=== PATIENT | male | born 1940 | race Caucasian/White ===

== ENCOUNTER 2024-01-27 17:55 | Inpatient (IN) | payer MEDICARE, OTHER ==
[~2024-01-27] VITALS: Ht 177.8 cm; Wt 68.0 kg
--- NOTE | 2024-01-27 18:05 | NUR ---
PT C/O OF MODERATE PAIN TO L LEG, HIP AND NECK X 2 DAYS AFTER FALL. PT TAKEN TO BED 1 AND PT CONNECTED TO MONITOR. PT WAITING FOR ER MD SWANSON.
--- NOTE | 2024-01-27 19:00 | NUR ---
ER AT BEDSIDE FOR EVAL
[2024-01-27 19:06] VITALS: O2SAT 100
[2024-01-27] MEDS ORDERED: MORPHINE SULFATE INJ 4 MG/ML DISP.SYRIN ONE (19:12)
[2024-01-27] MEDS: MORPHINE SULFATE INJ 2 MG/ML DISP.SYRIN IV ONE (19:26)
--- NOTE | 2024-01-27 21:21 | NUR ---
DR SARAI AUGUSTINE.
--- NOTE | 2024-01-27 22:09 | NUR ---
REPORT GIVEN TO RESIDENTIAL PROGRAM MANAGER GILL
[2024-01-27 22:27] VITALS: BP 123/62; TEMP 97.3; O2SAT 100
[2024-01-27] MEDS ORDERED: ONDANSETRON HCL/PF 4 MG/2 ML VIAL IVP PRN (22:30)
[2024-01-27] MEDS ORDERED: Z GUARD REMEDY 4 OZ OINT TP PRN (22:30)
--- NOTE | 2024-01-27 22:30 | NUR ---
MS TAXI DANCER NOTES RECEIVED PATIENT FROM ED VIA [facility]. REPORT GIVEN BY CHARGE NURSE FLAQUITO. PATIENT IS A&O X 2-3, CONFUSED AND FORGETFUL. ON ROOM AIR, TOLERATING WELL. BREATHING EVEN AND NON LABORED, NO SOB NOTED. ALL BELONGINGS ACCOUNTED FOR, AND BELONGING LIST PLACED IN THE CHART. IV ACCESS TO RIGHT WRIST #22G, PATENT INTACT AND FLUSHING WELL, WITH IV FLUID OF NS RUNNING AT 75 ML/HR, INFUSING WELL. SKIN ASSESSMENT DONE, HAS SCAB TO RIGHT BIG TOE, AND SCAB TO LEFT ANKLE, AND DISCOLORATIONS TO BLE. PICTURES TAKEN AND PLACED IN CHART. LUNGS CLEAR. BOWEL SOUNDS PRESENT. FALL AND SAFETY MEASURES ARE IN PLACE: BED ON LOW LOCKED POSITION, SIDE RAILS RAISED X2, ALARM ON AND CALL LIGHT WITHIN REACH AT ALL TIMES. PLAN OF CARE OF ONGOING.
--- NOTE | 2024-01-27 22:36 | NUR ---
PT TRANSPORTED TO [facility] [[email or web address]] VIA GURNEY WITH ACLS PROTOCOL
[2024-01-27] MEDS: IV NS 0.9% 1,000 ML IV PRN (23:39)
[2024-01-28] MEDS: MORPHINE SULFATE INJ 2 MG/ML DISP.SYRIN IV PRN (00:30)
--- NOTE | 2024-01-28 00:30 | NUR ---
RN NOTE PT REPORTS PAIN TO LEFT HIP. MORPHINE ADMINISTERED TO PT.
[2024-01-28 06:41] LABS: BASOPHILS # (AUTO) 0.1 K/uL (0.0-0.2); BASOPHILS % (AUTO) 0.6 % (0.0-2.0); EOSINOPHILS # (AUTO) 0.6 K/uL (0.0-0.7); HEMATOCRIT 27 % (39-51); HEMOGLOBIN 9.4 g/dL (13.5-17.5); LYMPHOCYTES # (AUTO) 1.6 K/uL (0.8-4.8); LYMPHOCYTES % (AUTO) 16.9 % (20.0-44.0); MEAN CORPUSCULAR HEMOGLOBIN 36 PG (26.0-33.0); MEAN CORPUSCULAR HGB CONC 35 g/dl (31.0-36.0); MEAN CORPUSCULAR VOLUME 102 fL (80-96); NEUTROPHILS # (AUTO) 6.4 K/uL (1.8-8.9); NEUTROPHILS % (AUTO) 66.5 % (43.0-81.0); PLATELET COUNT (AUTO) 123 K/uL (150-450); RED BLOOD CELL COUNT(AUTO) 2.63 MIL/uL (4.5-6.0); RED CELL DISTRIBUTION WIDTH 15.1 % (11.5-15.0); WHITE BLOOD COUNT (AUTO) 9.6 K/uL (4.3-11.0)
[2024-01-28 06:54] LABS: INR 1.24 (0.91-1.10)
--- NOTE | 2024-01-28 07:00 | NUR ---
RN NOTE RT IS CALLED TO DO STAT EKG. RT REPLIES THAT HE WILL COME SHORTLY. AWAITING FOR RT.
[2024-01-28] MEDS ORDERED: FENTANYL PF 100MCG/2ML AMPUL ONE (07:05)
--- NOTE | 2024-01-28 07:10 | NUR ---
RN NOTE RT WAS CALLED FOR EKG. WAITING FOR RT TO COME FOR EKG. INFORMED OR NURSE POLI THAT EKG IS NOT DONE YET. STRESS ENGINEERCELY ASHTON STATES THAT SHE CAN NOT WAIT FOR EKG TO BE DONE. SHE WILL TAKE THE PT TO OR, AND WILL ASK FOR EKG TO BE DONE IN OR.
--- NOTE | 2024-01-28 07:15 | NUR ---
RN CLOSING NOTE PT LEFT FOR SURGERY ACCOMPANIED BY 2 OR NURSE. PRE-OP CHECK LIST DONE. PT'S DTR JAVIER WAS CALLED FOR CONSENT, BUT NO ANSWER. MESSAGE LEFT FOR DTR TO CALL BACK. PT WAS EXPLAINED PROCEDURE AN CONSENTED FOR IM NAILING OF LEFT HIP. CONSENT SIGNED, AND PLACED IN CHART. PT LEFT IN STABLE CONDITION, VS WNL., WILL ENDORSE PT TO AM NURSE FOR FILI.
--- NOTE | 2024-01-28 07:30 | NUR ---
RN NOTE PATIENT CURRENTLY NOT IN HIS ROOM AT THIS TIME. PT AT OR/SURGERY ROOM.
[2024-01-28 07:35] LABS: CALCIUM, SERUM 8.6 mg/dL (8.5-10.1); CARBON DIOXIDE 24 mmol/L (21-32); CHLORIDE 110 mmol/L (98-107); GLUCOSE 103 mg/dL (74-106); MAGNESIUM 2.2 mg/dL (1.8-2.4); POTASSIUM 3.9 mmol/L (3.5-5.1); SODIUM SERUM 142 mmol/L (136-145); UREA NITROGEN, BLOOD 17 mg/dL (7-18)
[2024-01-28] MEDS ORDERED: TRANEXAMIC ACID 1,000 MG/10 ML VIAL ONE (07:47)
[2024-01-28] MEDS ORDERED: VANCOMYCIN 1 GM VIAL ONE (07:47)
[2024-01-28] MEDS ORDERED: BUPIVACAINE 0.5 % PF 150 MG/30 ML VIAL ONE (07:47)
[2024-01-28] MEDS ORDERED: SEVOFLURANE 250 ML BOTTLE IH ONE (08:30)
[2024-01-28] MEDS: PANTOPRAZOLE 40 MG VIAL IV SCH (08:58)
--- NOTE | 2024-01-28 10:30 | NUR ---
RN NOTE PATIENT CAME BACK FROM OR/SURGERY S/P LT HIP IM CHICHI, A/OX2-3 CHILEAN SPEAKING. PATIENT ON ROOM AIR TOLERATING AT 100%. VITALS TAKEN, WNL. BP IS 119/58 RR-15 WA-65. PATIENT DENIES ANY PAIN AT THIS TIME, APPEARS COMFORTABLE. ALL DUE MEDS GIVEN. PATIENT INCISION SITE AT LT HIP IS INTACT AND NO BLEEDING ON SITE. WILL CONTINUE TO MONITOR.
[2024-01-28] MEDS ORDERED: MORPHINE SULFATE INJ 4 MG/ML DISP.SYRIN IV PRN ×2 (11:30)
[2024-01-28] MEDS: Potassium Chloride 20 MEQ in IV D5/0.45 NACL 1,000 ML IV SCH (12:04)
[2024-01-28 12:07] LABS: IRON, SERUM 72 ug/dl (50-175); TOTAL IRON BINDING CAPACITY 199 ug/dl (250-450)
[2024-01-28 16:04] VITALS: BP 106/59; TEMP 97.5; O2SAT 100
[2024-01-28] MEDS: HYDROCODONE/APAP 5/325MG TABLET PO PRN (16:46)
--- NOTE | 2024-01-28 16:46 | NUR ---
RN NOTE PATIENT C/O LEFT HIP PAIN, P/S OF 8/10, VITALS WNL. BP-106/54 RR-16 HR-76 T-97.5 SPO2-100% ON ROOM AIR. WILL MONITOR FOR EFFECTIVENESS.
--- NOTE | 2024-01-28 19:22 | NUR ---
END OF SHIFT NOTE PATIENT AWAKE IN BED, A/OX2-3 GREEK SPEAKING. PATIENT ON ROOM AIR, NOT IN ANY FORM OF DISTRESS NOTED AT THIS TIME. PATIENT DENIES ANY PAIN AT THIS TIME, APPEARS COMFORTABLE. S/P LT HIP IM RODDING, NO BLEEDING NOTED AT THIS TIME. ALL DUE MEDS GIVEN. ALL NEEDS ATTENDED. FALL AND SAFETY MEASURES IN PLACE. BED ALARM ON. BED IN LOW AND LOCKED POSITION. CALL LIGHT AND TABLE WITHIN REACH. SIDE RAILS UP X3. WILL ENDORSE TO NOC NURSE.
--- NOTE | 2024-01-28 19:25 | NUR ---
MS RN OPENING NOTES RECEIVED PATIENT AWAKE ON BED. A/O X2-3 ALBANIAN SPEAKING. ON ROOM AIR TOLERATING WELL WITHOUT ANY RESPIRATORY DISTRESS NOTED. WITH IV ACCESS OF R WRIST G#22 WITH ONGOING IVF OF D5 1/2NS WITH 20 MEQS KCL AT 125CC/HR. PATENT AND INTACT. WITH SURGICAL DRESSING AT LEFT HIP C/D/I. ON PUREWICK WITH YELLOW URINE OUTPUT NOTED. SAFETY MEASURES IMPLEMENTED. BED LOCKED AND IN LOWEST POSITION. SIDE RAILS X2. CALL LIGHT WITHIN REACH. WILL CONTINUE PLAN OF CARE.
--- NOTE | 2024-01-28 19:35 | NUR ---
RN NOTES IVF D5 1/2 NS WITH 20 MEQS KCL NOT HOOKED BECAUSE THERE WAS STILL 250 CC LEFT.
[2024-01-28 20:27] VITALS: BP 134/68; TEMP 97.3; O2SAT 100
--- NOTE | 2024-01-29 06:48 | NUR ---
MS RN CLOSING NOTES PATIENT AWAKE ON BED. A/O X2-3 FRENCH SPEAKING. ON ROOM AIR TOLERATED WELL WITHOUT ANY RESPIRATORY DISTRESS NOTED THE WHOLE SHIFT. WITH IV ACCESS OF R WRIST G#22 WITH ONGOING IVF OF D5 1/2NS WITH 20 MEQS KCL AT 125CC/HR. PATENT AND INTACT. WITH SURGICAL DRESSING AT LEFT HIP. ON PUREWICK WITH DARK YELLOW URINE OUTPUT NOTED. CANISTER CHANGED. MORNING CARE RENDERED. SAFETY MEASURES MAINTAINED. NEEDS ATTENDED. ENDORSED TO MORNING SHIFT NURSE.
--- NOTE | 2024-01-29 07:10 | NUR ---
RN NOTE WAITING FOR RT TO COME FOR EKG. INFORMED OR NURSE POLI THAT EKG IS NOT DONE YET. ENTRY SPECIALIST POLI STATES THAT SHE CAN NOT WAIT FOR EKG TO BE DONE. SHE WILL TAKE THE PT TO OR, AND WILL ASK FOR EKG TO BE DONE IN OR. Addendum: 01/29/24 at 0739 by SUNDAY LOPEZ RN PLEASE DISREGARD NOTE.
[2024-01-29 07:30] VITALS: BP 130/61; TEMP 97.5; O2SAT 98
[2024-01-29 07:39] LABS: BASOPHILS % (AUTO) 0.3 % (0.0-2.0); EOSINOPHILS # (AUTO) 0.8 K/uL (0.0-0.7); EOSINOPHILS % (AUTO) 7.6 % (0.0-6.0); HEMATOCRIT 25 % (39-51); LYMPHOCYTES # (AUTO) 1.5 K/uL (0.8-4.8); LYMPHOCYTES % (AUTO) 14.1 % (20.0-44.0); MEAN CORPUSCULAR HEMOGLOBIN 37 PG (26.0-33.0); MEAN CORPUSCULAR HGB CONC 36 g/dl (31.0-36.0); MEAN CORPUSCULAR VOLUME 104 fL (80-96); MONOCYTES # (AUTO) 1.2 K/uL (0.1-1.30); MONOCYTES % (AUTO) 11.4 % (2.0-12.0); NEUTROPHILS # (AUTO) 7.3 K/uL (1.8-8.9); NEUTROPHILS % (AUTO) 66.6 % (43.0-81.0); PLATELET COUNT (AUTO) 131 K/uL (150-450); RED BLOOD CELL COUNT(AUTO) 2.46 MIL/uL (4.5-6.0); RED CELL DISTRIBUTION WIDTH 15.7 % (11.5-15.0); WHITE BLOOD COUNT (AUTO) 10.9 K/uL (4.3-11.0)
--- NOTE | 2024-01-29 07:43 | NUR ---
RN OPENING NOTE RECEIVED PATIENT SLEEPING IN BED. AWAKENS TO VERBAL STIMULI. A/O X2-3, ENGLISH SPEAKING. ON ROOM AIR, TOLERATING WELL WITHOUT ANY SOB. NO RESPIRATORY DISTRESS NOTED. PATIENT WITH IV ACCESS ON R WRIST #22G, WITH ONGOING IVF OF D5 1/2NS WITH 20 MEQS KCL AT 125CC/HR. WITH SURGICAL DRESSING AT LEFT HIP C/D/I. PATIENT ON PUREWICK CONNECTED TO WALL SUCTION. SAFETY MEASURES IN PLACE: BED LOCKED AND IN LOWEST POSITION. SIDE RAILS X2. CALL LIGHT WITHIN REACH. PLAN OF CARE ONGOING.
[2024-01-29 07:46] LABS: CALCIUM, SERUM 7.5 mg/dL (8.5-10.1); CARBON DIOXIDE 18 mmol/L (21-32); CHLORIDE 110 mmol/L (98-107); CREATININE 0.8 mg/dL (0.6-1.3); GLUCOSE 108 mg/dL (74-106); POTASSIUM 4.7 mmol/L (3.5-5.1); SODIUM SERUM 138 mmol/L (136-145); UREA NITROGEN, BLOOD 15 mg/dL (7-18)
[2024-01-29] MEDS: PANTOPRAZOLE 40 MG TABLET.DR PO SCH (09:00)
[2024-01-29 11:16] LABS: IRON, SERUM 73 ug/dl (50-175); TOTAL IRON BINDING CAPACITY 160 ug/dl (250-450)
[2024-01-29] MEDS: SOD FERRIC GLUC 125 MG in IV NS 0.9% 100 ML IV SCH (13:44)
[2024-01-29 16:00] VITALS: BP 107/71; TEMP 97.3; O2SAT 100
--- NOTE | 2024-01-29 19:18 | NUR ---
RN CLOSING NOTE PATIENT IS AWAKE IN BED, WITH FAMILY AT BEDSIDE, A/O X2-3, NORWEGIAN SPEAKING. ON ROOM AIR, TOLERATING WELL WITHOUT ANY SOB. NO RESPIRATORY DISTRESS NOTED. PATIENT WITH IV ACCESS ON R WRIST #22G, INTACT, PATENT, SALINE LOCKED. WITH SURGICAL DRESSING AT LEFT HIP C/D/I. PATIENT ON PUREWICK CONNECTED TO WALL SUCTION. DUE MEDS GIVEN. CARE RENDERED. NEEDS ATTENDED. SAFETY MEASURES MAINTAINED: BED LOCKED AND IN LOWEST POSITION. SIDE RAILS X2. CALL LIGHT WITHIN REACH. ENDORSED TO NEON SIGN MECHANIC NURSE FOR CONTINUITY OF CARE.
--- NOTE | 2024-01-29 19:20 | NUR ---
MS SUZY INITIAL NOTES Received report from am nurse Sebas and checked the patient in his room and saw him awake and alert Malay man no signs of any acute distress noted. Appears comfortable and denies any pain or any discomfort. Family at the bedside helping to translate what I'm asking to the patient . Patient has an IV access on his right wrist gauge 22 patent ,intact and flushes well. Re-oriented patient where he at and how to use the call light system and patient understood well but per family sometimes patient having forgetful . Kept him warm and comfortable at all times. Bed in low and lock in position with side rails x2 up and bed alarm set for safety. will continue monitoring.
[2024-01-29 20:27] VITALS: BP 112/56; TEMP 97.9; O2SAT 100
--- NOTE | 2024-01-30 00:48 | NUR ---
MS TECHNICAL SERVICES LIBRARIAN NOTES Checked patient and saw him awake and alert, facial grimace noted and complaining of pain 12/10 , [place] tablet 5/325 x2 doses given as ordered with apple sauce and water , patient tolerated well , No signs of aspiration or N/V noted, Kept him warm and comfortable at all times. will continue monitoring.
--- NOTE | 2024-01-30 03:49 | NUR ---
MS SUZY NOTES Checked patient in his room saw him remain sleeping comfortably after pain medication given. Respiration even and non-labored, not in any acute distress noted. Kept him warm and comfortable at all times. call light at reach.
--- NOTE | 2024-01-30 07:00 | NUR ---
MS CTE TEACHER CLOSING NOTES PT REMAINS SLEEPING AT THIS TIME AFTER MORNING CARE AND WOUND CARE DONE, SLEPT WELL . PATIENT IS A/O X 4, ABLE TO MAKE NEEDS KNOWN. STABLE ON ROOM AIR, BREATHING EVENLY AND NO S/S OF DISTRESS NOTED. WITH IV ACCESS ON RIGHT WRIST #20 PATENT AND INTACT. ADMINISTERED MEDICATIONS PRESCRIBED. NEEDS ATTENDED. NO COMPLAINTS OF PAIN AND DISCOMFORT AT THIS TIME. SAFETY MEASURES IMPLEMENTED, BED LOCKED AND IN LOWEST POSITION, SIDE RAILS UP X 2, CALL LIGHT AND TABLE WITHIN REACH, BED ALARM ON. WILL ENDORSE TO AM NURSE FOR CONTINUITY OF CARE.
[2024-01-30 07:45] LABS: BASOPHILS % (AUTO) 0.2 % (0.0-2.0); EOSINOPHILS # (AUTO) 0.8 K/uL (0.0-0.7); EOSINOPHILS % (AUTO) 9.2 % (0.0-6.0); HEMATOCRIT 21 % (39-51); HEMOGLOBIN 7.6 g/dL (13.5-17.5); LYMPHOCYTES # (AUTO) 1.5 K/uL (0.8-4.8); LYMPHOCYTES % (AUTO) 17.8 % (20.0-44.0); MEAN CORPUSCULAR HEMOGLOBIN 36 PG (26.0-33.0); MEAN CORPUSCULAR HGB CONC 35 g/dl (31.0-36.0); MEAN CORPUSCULAR VOLUME 101 fL (80-96); MONOCYTES % (AUTO) 11.5 % (2.0-12.0); NEUTROPHILS # (AUTO) 5.2 K/uL (1.8-8.9); NEUTROPHILS % (AUTO) 61.3 % (43.0-81.0); PLATELET COUNT (AUTO) 126 K/uL (150-450); RED BLOOD CELL COUNT(AUTO) 2.12 MIL/uL (4.5-6.0); RED CELL DISTRIBUTION WIDTH 15.3 % (11.5-15.0); WHITE BLOOD COUNT (AUTO) 8.6 K/uL (4.3-11.0)
--- NOTE | 2024-01-30 07:50 | NUR ---
MS RN OPENING NOTE (DAY SHIFT) RECEIVED PATIENT SLEEPING IN BED. AWAKENS TO VERBAL STIMULI. A/O X 2, CONFUSED, SINHAL[place] SPEAKING. ON ROOM AIR, TOLERATING WELL WITHOUT ANY SOB. NO RESPIRATORY DISTRESS NOTED. PATIENT WITH IV ACCESS ON R WRIST #22 GAUGE, SALINE LOCKED, INTACT, PATENT, AND FLUSHES WITHOUT ANY SIGNS OF COMPLICATIONS OF IV THERAPY. PATIENT HAS WITH SURGICAL DRESSING AT LEFT HIP C/D/I. PATIENT ON MALE PURE WICK DEVICE CONNECTED TO WALL SUCTION. SAFETY MEASURES IN PLACE: BED LOCKED AND IN LOWEST POSITION. SIDE RAILS X 3. CALL LIGHT WITHIN REACH. PLAN OF CARE ONGOING PER HOSPITALIST.
[2024-01-30 08:00] VITALS: BP 107/53; TEMP 97.5; O2SAT 100
[2024-01-30 08:02] LABS: CALCIUM, SERUM 7.6 mg/dL (8.5-10.1); CARBON DIOXIDE 26 mmol/L (21-32); CHLORIDE 108 mmol/L (98-107); CREATININE 0.9 mg/dL (0.6-1.3); GLUCOSE 97 mg/dL (74-106); POTASSIUM 4.2 mmol/L (3.5-5.1); SODIUM SERUM 140 mmol/L (136-145); UREA NITROGEN, BLOOD 14 mg/dL (7-18)
[2024-01-30] MEDS ORDERED: Hydrocodone/Apap 5/325MG PO (09:04)
[2024-01-30] MEDS ORDERED: ENOX40DI SQ (09:04)
[2024-01-30] MEDS ORDERED: FOLI0.8C PO (09:11)
[2024-01-30] MEDS ORDERED: MECO10005 PO (09:11)
--- NOTE | 2024-01-30 13:09 | NUR ---
MS RUBBER MOLD MAKER TO SNF NOTE (DAY SHIFT) Patient tolerated well the removal of the #22 gauge PIV catheter, fully intact, from his right wrist without any signs of complications of IV therapy. Patient is too confused to understand his discharge home care instructions. Receiving facility nurse, [facility], demonstrated understanding of patient's discharge instructions from hand-off telephone report and printed instructions, using the teach back method in his own words. Patient departed the [address] [place] [address] @ 13:05 hours via gurney to ambulance bound for [facility].
== END 2024-01-30 15:50 | DRG 308 ==
LOC: ER 18:01 → TELE 21:51 → MED 23:47
PROVIDERS: ADMIT Nurse Practitioner Family; ATTEND Internal Medicine
PROC: 0QS706Z Reposition Left Upper Femur with Intramedullary Internal Fixation Device, Open Approach (ICD-10-PCS; principal; 2024-01-28)
DX: S72.142A Displaced intertrochanteric fracture of left femur, initial encounter for closed fracture (principal); D53.9 Nutritional anemia, unspecified; Y92.89 Other specified places as the place of occurrence of the external cause; W01.0XXA Fall on same level from slipping, tripping and stumbling without subsequent striking against object, initial encounter
CPT/HCPCS: 36415; 70450-TC; 71100-TC; 72125-TC; 73502; 73564-TC; 80048-TC; 82728-TC; 83540-TC; 83735-TC; 84100-TC; 85025-TC; 85610-TC; 85730-TC; 86850-TC; 87081-TC; 92526; 92611-TC; 93307-TC; 97110-TC; 97112-TC; 97530-TC; A4223; A6209; A6253; C1713; G0378; J0330; J0690; J1100; J2270; J2405; J2470; J2704; J2916; J3010; J3370; J3480; J3490; J7030; J7050

== ENCOUNTER 2024-02-01 14:00 | Emergency (ER) | payer MEDICARE, OTHER ==
[~2024-02-01] VITALS: Ht 167.6 cm; Wt 68.0 kg
[~2024-02-01 14:00] MED LIST: ENOX40DI SQ; FOLI0.8C PO; Hydrocodone/Apap 5/325MG PO; MECO10005 PO
--- NOTE | 2024-02-01 14:00 | NUR ---
BIBRA FROM SNF FOR ANEMIA (HGB 6.8 AT FACILITY). A/O X 3, ABLE TO MAKE NEEDS KNOWN, TOLERATING WELL ON ROOM AIR. DAUGHTER AT BEDSIDE. WILL CONTINUE TO MONITOR.
[2024-02-01 15:07] LABS: BASOPHILS % (AUTO) 0.1 % (0.0-2.0); EOSINOPHILS # (AUTO) 0.1 K/uL (0.0-0.7); EOSINOPHILS % (AUTO) 1.6 % (0.0-6.0); HEMATOCRIT 24 % (39-51); HEMOGLOBIN 8.3 g/dL (13.5-17.5); LYMPHOCYTES # (AUTO) 0.8 K/uL (0.8-4.8); LYMPHOCYTES % (AUTO) 9.1 % (20.0-44.0); MEAN CORPUSCULAR HEMOGLOBIN 37 PG (26.0-33.0); MEAN CORPUSCULAR HGB CONC 35 g/dl (31.0-36.0); MEAN CORPUSCULAR VOLUME 103 fL (80-96); MONOCYTES # (AUTO) 0.8 K/uL (0.1-1.30); MONOCYTES % (AUTO) 8.8 % (2.0-12.0); NEUTROPHILS % (AUTO) 80.4 % (43.0-81.0); PLATELET COUNT (AUTO) 168 K/uL (150-450); RED BLOOD CELL COUNT(AUTO) 2.27 MIL/uL (4.5-6.0); WHITE BLOOD COUNT (AUTO) 8.7 K/uL (4.3-11.0)
[2024-02-01 15:16] LABS: CALCIUM, SERUM 8.4 mg/dL (8.5-10.1); CARBON DIOXIDE 27 mmol/L (21-32); CHLORIDE 106 mmol/L (98-107); GLUCOSE 138 mg/dL (74-106); POTASSIUM 4.1 mmol/L (3.5-5.1); SODIUM SERUM 139 mmol/L (136-145); UREA NITROGEN, BLOOD 14 mg/dL (7-18)
[2024-02-01] MEDS ORDERED: ZINC50TA69 PO (15:20)
[2024-02-01] MEDS ORDERED: MULT-213 PO (15:20)
[2024-02-01] MEDS ORDERED: MAGN400O6 PO (15:20)
[2024-02-01] MEDS ORDERED: FOLI0.8C PO (15:20)
[2024-02-01] MEDS ORDERED: ACET-73 PO (15:20)
[2024-02-01] MEDS ORDERED: MECO10005 PO (15:20)
[2024-02-01] MEDS ORDERED: ENOX30DI5 SQ (15:20)
[2024-02-01] MEDS ORDERED: ASCO-340 PO (15:20)
[2024-02-01] MEDS ORDERED: ACET-868 PO (15:20)
[2024-02-01] MEDS ORDERED: AMIN30LI66 PO (15:20)
[2024-02-01] MEDS ORDERED: HYDR-4209 PO (15:20)
[2024-02-01 15:24] LABS: ALANINE AMINOTRANSFERASE 21 U/L (12-78); ALBUMIN 2.3 g/dL (3.4-5.0); ALKALINE PHOSPHATASE 118 U/L (46-116); ASPARTATE AMINOTRANSFERASE 35 U/L (15-37); BILIRUBIN,DIRECT 0.8 mg/dL (0.0-0.2); BILIRUBIN,TOTAL 3.9 mg/dL (0.2-1.0); TOTAL PROTEIN, SERUM 5.7 g/dL (6.4-8.2)
[2024-02-01 15:25] LABS: INR 1.25 (0.91-1.10); PARTIAL THROMBOPLASTIN TIME 44.3 SEC (24.3-34.3); PROTHROMBIN TIME 13.1 SECS (9.2-11.1)
--- NOTE | 2024-02-01 15:48 | NUR ---
CALLED [facility] FOR TRANSPORT ETA [phone]
--- NOTE | 2024-02-01 17:20 | NUR ---
PICKED UP BY [facility] [address] IN STABLE CONDITION. PATIENT WILL BE BROUGHT BACK TO [facility].
[2024-02-01 17:38] VITALS: BP 132/70; TEMP 98.5; O2SAT 98
[2024-02-01 19:53] LABS: ANISOCYTOSIS 1+; EOSINOPHILS % (MANUAL) 2 % (0-4); LYMPHOCYTES % (MANUAL) 10 % (16-48); MONOCYTES % (MANUAL) 3 % (0-11.0); NEUTROPHILS % (MANUAL) 85 (42-76); PLATELET ESTIMATE ADEQUATE
== END 2024-02-01 17:40 ==
LOC: ER 14:15
DX: D64.9 Anemia, unspecified (principal); I10 Essential (primary) hypertension; Z79.1 Long term (current) use of non-steroidal anti-inflammatories (NSAID); Z79.899 Other long term (current) drug therapy
CPT/HCPCS: 36415; 80048-TC; 80076-TC; 85025-TC; 85730-TC; 86850-TC

== ENCOUNTER 2024-02-23 22:25 | Inpatient (IN) | payer MEDICARE, OTHER ==
[~2024-02-23] VITALS: Ht 167.6 cm; Wt 68.0 kg
[~2024-02-23 22:25] MED LIST changes: +ACET-73 PO; +ACET-868 PO; +AMIN30LI66 PO; +ASCO-340 PO; +ENOX30DI5 SQ; -ENOX40DI SQ; +HYDR-4209 PO; -Hydrocodone/Apap 5/325MG PO; +MAGN400O6 PO; +MULT-213 PO; +ZINC50TA69 PO
[2024-02-23] MEDS: ACETAMINOPHEN 650 MG/SUPP.RECT RC ONE (23:00)
[2024-02-23] MEDS: IV NS 0.9% 1,000 ML BAG IV ONE (23:00)
[2024-02-23] MEDS ORDERED: ACETAMINOPHEN 650 MG/SUPP.RECT RC ONE (23:23)
[2024-02-23 23:32] LABS: BASOPHILS % (AUTO) 0.3 % (0.0-2.0); EOSINOPHILS % (AUTO) 0.1 % (0.0-6.0); HEMATOCRIT 30 % (39-51); LYMPHOCYTES # (AUTO) 0.5 K/uL (0.8-4.8); LYMPHOCYTES % (AUTO) 6.6 % (20.0-44.0); MEAN CORPUSCULAR HEMOGLOBIN 34 PG (26.0-33.0); MEAN CORPUSCULAR HGB CONC 33 g/dl (31.0-36.0); MEAN CORPUSCULAR VOLUME 103 fL (80-96); MONOCYTES # (AUTO) 0.6 K/uL (0.1-1.30); MONOCYTES % (AUTO) 8.6 % (2.0-12.0); NEUTROPHILS % (AUTO) 84.4 % (43.0-81.0); PLATELET COUNT (AUTO) 154 K/uL (150-450); RED BLOOD CELL COUNT(AUTO) 2.93 MIL/uL (4.5-6.0); RED CELL DISTRIBUTION WIDTH 16.1 % (11.5-15.0); WHITE BLOOD COUNT (AUTO) 7.2 K/uL (4.3-11.0)
[2024-02-23 23:39] LABS: CARBON DIOXIDE 24 mmol/L (21-32); CHLORIDE 110 mmol/L (98-107); CREATININE 1.5 mg/dL (0.6-1.3); GLUCOSE 157 mg/dL (74-106); SODIUM SERUM 143 mmol/L (136-145); UREA NITROGEN, BLOOD 29 mg/dL (7-18)
[2024-02-23 23:43] LABS: INR 1.4 (0.91-1.10); PARTIAL THROMBOPLASTIN TIME 35.9 SEC (24.3-34.3); PROTHROMBIN TIME 14.5 SECS (9.2-11.1)
[2024-02-23 23:45] LABS: ALANINE AMINOTRANSFERASE 19 U/L (12-78); ALBUMIN 2.1 g/dL (3.4-5.0); ALKALINE PHOSPHATASE 179 U/L (46-116); ASPARTATE AMINOTRANSFERASE 25 U/L (15-37); BILIRUBIN,DIRECT 0.7 mg/dL (0.0-0.2); BILIRUBIN,TOTAL 1.7 mg/dL (0.2-1.0); TOTAL PROTEIN, SERUM 7.3 g/dL (6.4-8.2)
[2024-02-23 23:48] LABS: LACTIC ACID 2.6 mmol/L (0.4-2.0)
[2024-02-23 23:59] LABS: APPEARANCE,URINE SLIGHTLY CLOUDY (CLEAR); BILIRUBIN,URINE NEGATIVE (NEGATIVE); BLOOD, URINE 3+ Ery/uL (NEGATIVE); COLOR,URINE YELLOW (YELLOW); KETONES,URINE NEGATIVE (NEGATIVE); LEUKOCYTE ESTERASE ,URINE 3+ (NEGATIVE); NITRITE, URINE POSITIVE (NEGATIVE); PROTEIN,URINE 2+ mg/dl (NEGATIVE); UGLUCOSE NEGATIVE (NEGATIVE)
[2024-02-24] MEDS: CEFTRIAXONE 1GM BAG (ER ONLY) 1 GM/50 ML PIGGYBACK IV ONE (00:30)
[2024-02-24 00:37] LABS: ADD URINE CULTURE YES; BACTERIA,URINE 4+ /HPF (None Seen); MUCUS,URINE Moderate /LPF (None Seen); RBC,URINE 81-100 /HPF (0-2); SQUAMOUS EPITHELIAL CELL,UR None Seen /HPF (None Seen); WBC,URINE 81-100 /HPF (0-3)
[2024-02-24] MEDS ORDERED: Z GUARD REMEDY 4 OZ OINT TP PRN (01:30)
[2024-02-24] MEDS: IV NS 0.9% 1,000 ML IV PRN (03:23)
[2024-02-24] MEDS: ENOXAPARIN SODIUM 40 MG/0.4 ML DISP.SYRIN SQ SCH (05:00)
[2024-02-24] MEDS ORDERED: ENOXAPARIN SODIUM 40 MG/0.4 ML DISP.SYRIN SQ ONE (06:07)
[2024-02-24] MEDS ORDERED: FERR325T23 PO (08:24)
[2024-02-24] MEDS ORDERED: BISA10SU11 RC (08:24)
[2024-02-24] MEDS ORDERED: MELA10TA10 PO (08:24)
[2024-02-24] MEDS ORDERED: ACET-637 PO (08:24)
[2024-02-24] MEDS ORDERED: TAMS-12 PO (08:24)
[2024-02-24] MEDS ORDERED: LOPE-195 PO (08:24)
[2024-02-24] MEDS ORDERED: DOCU100C36 PO (08:24)
[2024-02-24] MEDS: PANTOPRAZOLE 40 MG VIAL IV SCH (09:59)
[2024-02-24 10:23] LABS: APPEARANCE,URINE TURBID (CLEAR); BILIRUBIN,URINE NEGATIVE (NEGATIVE); BLOOD, URINE 3+ Ery/uL (NEGATIVE); COLOR,URINE YELLOW (YELLOW); KETONES,URINE NEGATIVE (NEGATIVE); LEUKOCYTE ESTERASE ,URINE 3+ (NEGATIVE); NITRITE, URINE POSITIVE (NEGATIVE); PROTEIN,URINE 1+ mg/dl (NEGATIVE); UGLUCOSE NEGATIVE (NEGATIVE)
[2024-02-24 10:24] LABS: CREATININE, URINE 96.2 MG/DL (30.0-125.0); URINE TOTAL PROTEIN 85.8 mg/dL (0-11.9)
[2024-02-24 11:02] LABS: ADD URINE CULTURE YES; BACTERIA,URINE 2+ /HPF (None Seen); MUCUS,URINE Few /LPF (None Seen); RBC,URINE 21-50 /HPF (0-2); SQUAMOUS EPITHELIAL CELL,UR 0-2 /HPF (None Seen); WBC,URINE TOO NUMEROUS TO COUN /HPF (0-3)
[2024-02-24 12:00] VITALS: BP 109/53; TEMP 98.6; O2SAT 98
[2024-02-24 13:38] LABS: EOSINOPHIL,URINE None Seen
[2024-02-24 16:00] VITALS: BP 104/51; TEMP 98.1; O2SAT 95
[2024-02-24] MEDS ORDERED: LORAZEPAM INJ 2 MG/ML VIAL IV PRN (19:00)
[2024-02-24 19:43] LABS: ALANINE AMINOTRANSFERASE 19 U/L (12-78); ALBUMIN 1.9 g/dL (3.4-5.0); ALKALINE PHOSPHATASE 153 U/L (46-116); ASPARTATE AMINOTRANSFERASE 30 U/L (15-37); BILIRUBIN,DIRECT 0.6 mg/dL (0.0-0.2); BILIRUBIN,TOTAL 1.4 mg/dL (0.2-1.0); CALCIUM, SERUM 7.8 mg/dL (8.5-10.1); CARBON DIOXIDE 20 mmol/L (21-32); CHLORIDE 116 mmol/L (98-107); CREATININE 1.2 mg/dL (0.6-1.3); GLUCOSE 121 mg/dL (74-106); MAGNESIUM 2.6 mg/dL (1.8-2.4); PHOSPHORUS 3.6 mg/dL (2.5-4.9); POTASSIUM 3.9 mmol/L (3.5-5.1); SODIUM SERUM 145 mmol/L (136-145); TOTAL PROTEIN, SERUM 6.8 g/dL (6.4-8.2); UREA NITROGEN, BLOOD 27 mg/dL (7-18)
[2024-02-24 19:50] LABS: LACTIC ACID 2.6 mmol/L (0.4-2.0)
[2024-02-24 20:00] VITALS: BP 111/53; TEMP 97.9; O2SAT 100
[2024-02-24 20:14] LABS: BASOPHILS % (AUTO) 0.2 % (0.0-2.0); EOSINOPHILS % (AUTO) 0.6 % (0.0-6.0); HEMATOCRIT 31 % (39-51); HEMOGLOBIN 9.6 g/dL (13.5-17.5); LYMPHOCYTES # (AUTO) 0.5 K/uL (0.8-4.8); LYMPHOCYTES % (AUTO) 7.7 % (20.0-44.0); MEAN CORPUSCULAR HEMOGLOBIN 34 PG (26.0-33.0); MEAN CORPUSCULAR HGB CONC 32 g/dl (31.0-36.0); MEAN CORPUSCULAR VOLUME 109 fL (80-96); MONOCYTES # (AUTO) 0.5 K/uL (0.1-1.30); MONOCYTES % (AUTO) 9.2 % (2.0-12.0); NEUTROPHILS # (AUTO) 4.9 K/uL (1.8-8.9); NEUTROPHILS % (AUTO) 82.3 % (43.0-81.0); PLATELET COUNT (AUTO) 125 K/uL (150-450); RED BLOOD CELL COUNT(AUTO) 2.81 MIL/uL (4.5-6.0); RED CELL DISTRIBUTION WIDTH 17.6 % (11.5-15.0); WHITE BLOOD COUNT (AUTO) 5.9 K/uL (4.3-11.0)
[2024-02-24 20:38] LABS: ANISOCYTOSIS 1+; BAND % (MANUAL) 4 % (0.0-5.0); LYMPHOCYTES % (MANUAL) 9 % (16-48); MONOCYTES % (MANUAL) 5 % (0-11.0); NEUTROPHILS % (MANUAL) 82 (42-76); PLATELET ESTIMATE DECREASED
[2024-02-24 20:39] LABS: OVALOCYTES 1+; TEAR DROP CELLS RARE
[2024-02-25] VITALS (7 sets, daily range): BP systolic 98–112; BP diastolic 41–55; TEMP 97.5–98.1; O2SAT 100
[2024-02-25] MEDS ORDERED: CEFEPIME 1 GM VIAL ONE (02:19)
[2024-02-25] MEDS: CEFEPIME 1 GM in IV D5W 50 ML IV SCH (02:21)
[2024-02-25] MEDS: IV D5/0.45 NACL 1,000 ML IV PRN (04:09)
[2024-02-25 07:24] LABS: BASOPHILS % (AUTO) 0.5 % (0.0-2.0); EOSINOPHILS # (AUTO) 0.1 K/uL (0.0-0.7); EOSINOPHILS % (AUTO) 2.2 % (0.0-6.0); HEMATOCRIT 28 % (39-51); HEMOGLOBIN 8.8 g/dL (13.5-17.5); LYMPHOCYTES # (AUTO) 0.6 K/uL (0.8-4.8); MEAN CORPUSCULAR HEMOGLOBIN 35 PG (26.0-33.0); MEAN CORPUSCULAR HGB CONC 31 g/dl (31.0-36.0); MEAN CORPUSCULAR VOLUME 111 fL (80-96); MONOCYTES # (AUTO) 0.5 K/uL (0.1-1.30); MONOCYTES % (AUTO) 9.4 % (2.0-12.0); NEUTROPHILS # (AUTO) 4.5 K/uL (1.8-8.9); NEUTROPHILS % (AUTO) 77.9 % (43.0-81.0); PLATELET COUNT (AUTO) 119 K/uL (150-450); RED BLOOD CELL COUNT(AUTO) 2.55 MIL/uL (4.5-6.0); RED CELL DISTRIBUTION WIDTH 17.6 % (11.5-15.0); WHITE BLOOD COUNT (AUTO) 5.8 K/uL (4.3-11.0)
[2024-02-25 07:52] LABS: CREATINE KINASE, TOTAL 37 U/L (39-308)
[2024-02-25 08:00] LABS: ALANINE AMINOTRANSFERASE 17 U/L (12-78); ALBUMIN 1.7 g/dL (3.4-5.0); ALKALINE PHOSPHATASE 134 U/L (46-116); ASPARTATE AMINOTRANSFERASE 31 U/L (15-37); BILIRUBIN,TOTAL 1.3 mg/dL (0.2-1.0); CALCIUM, SERUM 7.6 mg/dL (8.5-10.1); CARBON DIOXIDE 22 mmol/L (21-32); CHLORIDE 117 mmol/L (98-107); CREATININE 1.2 mg/dL (0.6-1.3); GLUCOSE 124 mg/dL (74-106); MAGNESIUM 2.6 mg/dL (1.8-2.4); PHOSPHORUS 3.1 mg/dL (2.5-4.9); POTASSIUM 3.8 mmol/L (3.5-5.1); SODIUM SERUM 147 mmol/L (136-145); TOTAL PROTEIN, SERUM 6.1 g/dL (6.4-8.2); UREA NITROGEN, BLOOD 25 mg/dL (7-18)
[2024-02-25] MEDS ORDERED: CEFTRIAXONE 1 G in IV D5W 50 ML IV SCH (09:00)
[2024-02-26] VITALS: BP_SYST 110; BP_SYST 133; BP_DIAS 58; BP_DIAS 71; TEMP 98.1; TEMP 99.5; O2SAT 96; O2SAT 98
[2024-02-26 04:00] VITALS: BP 108/57; TEMP 98.6; O2SAT 98
[2024-02-26 06:09] LABS: PTH, INTACT 14 pg/mL (15-65)
[2024-02-26 08:00] VITALS: BP 105/49; TEMP 97.5; O2SAT 100
[2024-02-26] MEDS ORDERED: MORPHINE SULFATE INJ 2 MG/ML DISP.SYRIN IV PRN (10:30)
[2024-02-26 14:11] LABS: *SPE A/G RATIO 0.5 (0.7-1.7); *SPE ALPHA-1-GLOBULIN 0.3 g/dL (0.0-0.4); *SPE ALPHA-2-GLOBULIN 0.4 g/dL (0.4-1.0); *SPE BETA GLOBULIN 0.8 g/dL (0.7-1.3); *SPE GLOBULIN, TOTAL 3.7 g/dL (2.2-3.9); *SPE M-SPIKE Not Observed g/dL (Not Observed); *SPE PROTEIN TOTAL 5.7 g/dL (6.0-8.5); *SPEGAMMA GLOBULIN 2.2 g/dL (0.4-1.8)
[2024-02-26 16:00] VITALS: BP 117/52; TEMP 97.5; O2SAT 100
[2024-02-26 20:00] VITALS: BP 123/52; TEMP 97.2; O2SAT 100
[2024-02-27] VITALS (7 sets, daily range): BP systolic 111–128; BP diastolic 52–67; TEMP 97.5–98.5; O2SAT 100
[2024-02-27 04:18] LABS: BASOPHILS % (AUTO) 0.4 % (0.0-2.0); EOSINOPHILS # (AUTO) 0.2 K/uL (0.0-0.7); EOSINOPHILS % (AUTO) 4.7 % (0.0-6.0); HEMATOCRIT 32 % (39-51); HEMOGLOBIN 10.6 g/dL (13.5-17.5); LYMPHOCYTES # (AUTO) 0.7 K/uL (0.8-4.8); LYMPHOCYTES % (AUTO) 14.3 % (20.0-44.0); MEAN CORPUSCULAR HEMOGLOBIN 34 PG (26.0-33.0); MEAN CORPUSCULAR HGB CONC 33 g/dl (31.0-36.0); MEAN CORPUSCULAR VOLUME 105 fL (80-96); MONOCYTES # (AUTO) 0.4 K/uL (0.1-1.30); MONOCYTES % (AUTO) 7.7 % (2.0-12.0); NEUTROPHILS # (AUTO) 3.7 K/uL (1.8-8.9); NEUTROPHILS % (AUTO) 72.9 % (43.0-81.0); PLATELET COUNT (AUTO) 150 K/uL (150-450); RED BLOOD CELL COUNT(AUTO) 3.07 MIL/uL (4.5-6.0); WHITE BLOOD COUNT (AUTO) 5.1 K/uL (4.3-11.0)
[2024-02-27 04:30] LABS: CALCIUM, SERUM 8.3 mg/dL (8.5-10.1); CARBON DIOXIDE 19 mmol/L (21-32); CHLORIDE 117 mmol/L (98-107); CREATININE 1.1 mg/dL (0.6-1.3); GLUCOSE 108 mg/dL (74-106); PHOSPHORUS 3.3 mg/dL (2.5-4.9); POTASSIUM 3.4 mmol/L (3.5-5.1); SODIUM SERUM 148 mmol/L (136-145); UREA NITROGEN, BLOOD 19 mg/dL (7-18)
[2024-02-27] MEDS: POTASSIUM CHLORIDE 10 MEQ/50 ML PREMIXED IVPB FOR PERIPHERAL LINE IV ONE (05:19)
[2024-02-27] MEDS ORDERED: MEROPENEM 1 G VIAL IV ONE (22:52)
[2024-02-27] MEDS: MEROPENEM 1 G in IV NS 0.9% 100 ML IV ONE (22:55)
[2024-02-28] VITALS: BP 126/55; TEMP 98.5; O2SAT 100
[2024-02-28 04:09] VITALS: BP 126/55; TEMP 98.5; O2SAT 100
[2024-02-28 08:00] VITALS: BP 118/59; TEMP 97.7; O2SAT 100
[2024-02-28] MEDS ORDERED: MERO1PIG IV (08:35)
[2024-02-28] MEDS: MEROPENEM 1 G in IV NS 0.9% 100 ML IV SCH (09:31)
[2024-02-28 12:00] VITALS: BP 118/59; TEMP 97.5; O2SAT 100
[2024-02-28 16:00] VITALS: BP 111/59; TEMP 98.1; O2SAT 100
== END 2024-02-28 17:14 | DRG 871 ==
LOC: ER 22:26 → TRANSITION 02-24 01:24 → TELE1 02-24 04:43 → MEDSG1 02-25 09:56
PROVIDERS: ADMIT Nurse Practitioner Family; ATTEND Internal Medicine
DX: A41.2 Sepsis due to unspecified staphylococcus (principal); G93.41 Metabolic encephalopathy; N17.0 Acute kidney failure with tubular necrosis; N39.0 Urinary tract infection, site not specified; E46 Unspecified protein-calorie malnutrition; Z16.12 Extended spectrum beta lactamase (ESBL) resistance; E87.20 Acidosis, unspecified; E87.0 Hyperosmolality and hypernatremia; J21.9 Acute bronchiolitis, unspecified; E86.0 Dehydration; R62.7 Adult failure to thrive; Z86.73 Personal history of transient ischemic attack (TIA), and cerebral infarction without residual deficits; I10 Essential (primary) hypertension; Z79.01 Long term (current) use of anticoagulants; Z79.899 Other long term (current) drug therapy; B96.89 Other specified bacterial agents as the cause of diseases classified elsewhere; D63.8 Anemia in other chronic diseases classified elsewhere; E88.09 Other disorders of plasma-protein metabolism, not elsewhere classified; E87.6 Hypokalemia; M89.8X9 Other specified disorders of bone, unspecified site; B96.20 Unspecified Escherichia coli [E. coli] as the cause of diseases classified elsewhere; Z87.81 Personal history of (healed) traumatic fracture
CPT/HCPCS: 36415; 71045-TC; 71250-TC; 74230-TC; 80048-TC; 80053-TC; 80076-TC; 81001; 82550-TC; 82570-TC; 83605-TC; 83735-TC; 83970; 84100-TC; 84155; 84165; 84300-TC; 84443-TC; 84484-TC; 85025-TC; 85730-TC; 86850-TC; 87040-TC; 87081-TC; 87086-TC; 87186-TC; 92526; 92611-TC; A4223; G0378; J0692; J0696; J1650; J2185; J2470; J3480; J3490; J7030; J7050; J7060

== ENCOUNTER 2024-04-05 12:59 | Inpatient (IN) | payer OTHER, MEDICARE ==
[~2024-04-05] VITALS: Ht 165.1 cm; Wt 59.0 kg
[~2024-04-05 12:59] MED LIST changes: +ACET-637 PO; +BISA10SU11 RC; +DOCU100C36 PO; +FERR325T23 PO; +LOPE-195 PO; +MELA10TA10 PO; +MERO1PIG IV; +TAMS-12 PO
[2024-04-05] MEDS ORDERED: MEGE400O6 PO (13:47)
[2024-04-05 13:48] LABS: CARBON DIOXIDE 20 mmol/L (21-32); CHLORIDE 111 mmol/L (98-107); CREATININE 1.1 mg/dL (0.6-1.3); GLUCOSE 113 mg/dL (74-106); POTASSIUM 3.7 mmol/L (3.5-5.1); SODIUM SERUM 144 mmol/L (136-145); UREA NITROGEN, BLOOD 26 mg/dL (7-18)
[2024-04-05] MEDS: IV NS 0.9% 1,000 ML BAG IV ONE (13:53)
[2024-04-05] MEDS: IV NS 0.9% 500 ML BAG IV ONE (13:53)
[2024-04-05] MEDS: CEFEPIME 1 GM in IV D5W 50 ML IV ONE (13:54)
[2024-04-05 13:55] LABS: ALANINE AMINOTRANSFERASE 26 U/L (12-78); ALBUMIN 2.7 g/dL (3.4-5.0); ALCOHOL, BLOOD < 3 mg/dL (0-10); ALKALINE PHOSPHATASE 173 U/L (46-116); ASPARTATE AMINOTRANSFERASE 37 U/L (15-37); BILIRUBIN,DIRECT 0.7 mg/dL (0.0-0.2); BILIRUBIN,TOTAL 2.3 mg/dL (0.2-1.0); TOTAL PROTEIN, SERUM 7.4 g/dL (6.4-8.2)
[2024-04-05 14:22] LABS: BASOPHILS % (AUTO) 0.2 % (0.0-2.0); EOSINOPHILS # (AUTO) 0.3 K/uL (0.0-0.7); EOSINOPHILS % (AUTO) 2.6 % (0.0-6.0); HEMATOCRIT 36 % (39-51); HEMOGLOBIN 12.7 g/dL (13.5-17.5); LYMPHOCYTES # (AUTO) 3.2 K/uL (0.8-4.8); LYMPHOCYTES % (AUTO) 26.8 % (20.0-44.0); MEAN CORPUSCULAR HEMOGLOBIN 35 PG (26.0-33.0); MEAN CORPUSCULAR HGB CONC 36 g/dl (31.0-36.0); MEAN CORPUSCULAR VOLUME 98 fL (80-96); MONOCYTES % (AUTO) 8.6 % (2.0-12.0); NEUTROPHILS # (AUTO) 7.5 K/uL (1.8-8.9); NEUTROPHILS % (AUTO) 61.8 % (43.0-81.0); PLATELET COUNT (AUTO) 214 K/uL (150-450); RED BLOOD CELL COUNT(AUTO) 3.65 MIL/uL (4.5-6.0); RED CELL DISTRIBUTION WIDTH 17.8 % (11.5-15.0); SERUM AMMONIA 145 umol/L (11-32); WHITE BLOOD COUNT (AUTO) 12.1 K/uL (4.3-11.0)
[2024-04-05 14:29] LABS: INR 1.29 (0.91-1.10); PARTIAL THROMBOPLASTIN TIME 31.2 SEC (24.3-34.3); PROTHROMBIN TIME 13.4 SECS (9.2-11.1)
[2024-04-05] MEDS ORDERED: ONDANSETRON HCL/PF 4 MG/2 ML VIAL IVP PRN (15:00)
[2024-04-05] MEDS ORDERED: ACETAMINOPHEN 325 MG TABLET PO PRN (15:00)
[2024-04-05] MEDS: LACTULOSE UDC 200 G in SODIUM CHLORIDE IRRIG SOLUTION 400 ML IR ONE (15:30)
[2024-04-05 16:10] VITALS: BP 145/87; TEMP 98.1; O2SAT 99
[2024-04-05 16:14] LABS: LACTIC ACID 3.4 mmol/L (0.4-2.0)
[2024-04-05] MEDS: MEGESTROL ACETATE SUSP 400 MG/10 ML UDC PO SCH (17:00)
[2024-04-05] MEDS: IV NS 0.9% 1,000 ML IV PRN (17:37)
[2024-04-05] MEDS ORDERED: MEROPENEM 500 MG in IV NS 0.9% 50 ML IV SCH (18:00)
[2024-04-05] MEDS: MEROPENEM 1 G in IV NS 0.9% 100 ML IV SCH (18:44)
[2024-04-05 19:30] LABS: APPEARANCE,URINE CLEAR (CLEAR); BILIRUBIN,URINE NEGATIVE (NEGATIVE); BLOOD, URINE NEGATIVE Ery/uL (NEGATIVE); COLOR,URINE YELLOW (YELLOW); KETONES,URINE NEGATIVE (NEGATIVE); LEUKOCYTE ESTERASE ,URINE 2+ (NEGATIVE); NITRITE, URINE NEGATIVE (NEGATIVE); PROTEIN,URINE NEGATIVE (NEGATIVE); UGLUCOSE NEGATIVE (NEGATIVE); UROBILINOGEN,URINE 0.2 EU/dL (0.2)
[2024-04-05 19:32] LABS: ADD URINE CULTURE YES; BACTERIA,URINE Rare /HPF (None Seen); HYALINE CASTS, URINE Few /LPF (None Seen); RBC,URINE 0-2 /HPF (0-2); SQUAMOUS EPITHELIAL CELL,UR None Seen /HPF (None Seen)
[2024-04-05 20:00] VITALS: BP_SYST 122; BP_SYST 143; BP_DIAS 75; BP_DIAS 76; TEMP 97.9; TEMP 98.3; O2SAT 100; O2SAT 96
[2024-04-05] MEDS: ENOXAPARIN SODIUM 40 MG/0.4 ML DISP.SYRIN SQ SCH (20:31)
[2024-04-05 21:57] LABS: SERUM AMMONIA 116 umol/L (11-32)
[2024-04-06] VITALS: BP 143/79; TEMP 97.8; O2SAT 99
[2024-04-06 04:00] VITALS: BP 139/72; TEMP 97.8; O2SAT 97
[2024-04-06 06:26] LABS: BASOPHILS % (AUTO) 0.1 % (0.0-2.0); EOSINOPHILS % (AUTO) 2.6 % (0.0-6.0); HEMATOCRIT 35 % (39-51); HEMOGLOBIN 12.2 g/dL (13.5-17.5); LYMPHOCYTES % (AUTO) 12.6 % (20.0-44.0); MEAN CORPUSCULAR HEMOGLOBIN 35 PG (26.0-33.0); MEAN CORPUSCULAR HGB CONC 35 g/dl (31.0-36.0); MEAN CORPUSCULAR VOLUME 99 fL (80-96); MONOCYTES % (AUTO) 7.9 % (2.0-12.0); NEUTROPHILS % (AUTO) 76.8 % (43.0-81.0); PLATELET COUNT (AUTO) 160 K/uL (150-450); RED BLOOD CELL COUNT(AUTO) 3.52 MIL/uL (4.5-6.0); RED CELL DISTRIBUTION WIDTH 18.2 % (11.5-15.0); WHITE BLOOD COUNT (AUTO) 9.8 K/uL (4.3-11.0)
[2024-04-06 06:27] LABS: EOSINOPHILS # (AUTO) 0.3 K/uL (0.0-0.7); LYMPHOCYTES # (AUTO) 1.2 K/uL (0.8-4.8); MONOCYTES # (AUTO) 0.8 K/uL (0.1-1.30); NEUTROPHILS # (AUTO) 7.5 K/uL (1.8-8.9)
[2024-04-06 07:15] LABS: CALCIUM, SERUM 8.6 mg/dL (8.5-10.1); CARBON DIOXIDE 20 mmol/L (21-32); CHLORIDE 115 mmol/L (98-107); CREATININE 0.9 mg/dL (0.6-1.3); GLUCOSE 105 mg/dL (74-106); MAGNESIUM 2.1 mg/dL (1.8-2.4); PHOSPHORUS 3.5 mg/dL (2.5-4.9); POTASSIUM 3.8 mmol/L (3.5-5.1); SODIUM SERUM 146 mmol/L (136-145); UREA NITROGEN, BLOOD 22 mg/dL (7-18)
[2024-04-06 07:16] LABS: SERUM AMMONIA 138 umol/L (11-32)
[2024-04-06 08:00] VITALS: BP 139/71; TEMP 97.5; O2SAT 100
[2024-04-06] MEDS: TAMSULOSIN 0.4 MG CAP.SR.24H PO SCH (08:41)
[2024-04-06] MEDS ORDERED: LACTULOSE 10 G/15 ML UDC (PYXIS) PO PRN (11:00)
[2024-04-06 12:00] VITALS: BP 150/68; TEMP 97.5; O2SAT 100
[2024-04-06 16:00] VITALS: BP 142/71; TEMP 97.7; O2SAT 100
[2024-04-06 20:00] VITALS: BP 143/83; TEMP 97.7; O2SAT 100
[2024-04-06] MEDS: LACTULOSE 10 G/15 ML UDC (PYXIS) PO SCH (21:01)
[2024-04-07] VITALS: BP 157/67; TEMP 97.5; O2SAT 99
[2024-04-07 04:00] VITALS: BP 133/66; TEMP 97.7; O2SAT 100
[2024-04-07 07:35] LABS: BASOPHILS % (AUTO) 0.5 % (0.0-2.0); EOSINOPHILS # (AUTO) 0.4 K/uL (0.0-0.7); EOSINOPHILS % (AUTO) 4.7 % (0.0-6.0); HEMATOCRIT 35 % (39-51); HEMOGLOBIN 12.1 g/dL (13.5-17.5); LYMPHOCYTES # (AUTO) 1.6 K/uL (0.8-4.8); MEAN CORPUSCULAR HEMOGLOBIN 35 PG (26.0-33.0); MEAN CORPUSCULAR HGB CONC 34 g/dl (31.0-36.0); MEAN CORPUSCULAR VOLUME 101 fL (80-96); MONOCYTES # (AUTO) 0.8 K/uL (0.1-1.30); MONOCYTES % (AUTO) 9.5 % (2.0-12.0); NEUTROPHILS # (AUTO) 5.7 K/uL (1.8-8.9); NEUTROPHILS % (AUTO) 66.3 % (43.0-81.0); PLATELET COUNT (AUTO) 159 K/uL (150-450); RED BLOOD CELL COUNT(AUTO) 3.49 MIL/uL (4.5-6.0); RED CELL DISTRIBUTION WIDTH 18.1 % (11.5-15.0); WHITE BLOOD COUNT (AUTO) 8.5 K/uL (4.3-11.0)
[2024-04-07 07:49] LABS: CALCIUM, SERUM 8.9 mg/dL (8.5-10.1); CARBON DIOXIDE 21 mmol/L (21-32); CHLORIDE 117 mmol/L (98-107); GLUCOSE 92 mg/dL (74-106); MAGNESIUM 2.3 mg/dL (1.8-2.4); PHOSPHORUS 3.1 mg/dL (2.5-4.9); POTASSIUM 3.9 mmol/L (3.5-5.1); SODIUM SERUM 149 mmol/L (136-145); UREA NITROGEN, BLOOD 19 mg/dL (7-18)
[2024-04-07 08:00] VITALS: BP 115/65; TEMP 97.3; O2SAT 100
[2024-04-07 12:00] VITALS: BP 120/58; TEMP 97.3; O2SAT 98
[2024-04-07] MEDS: IV D5W 1,000 ML IV ONE (13:30)
[2024-04-07] MEDS: RIFAXIMIN 550 MG TABLET PO SCH (13:31)
[2024-04-07 16:00] VITALS: BP 121/56; TEMP 97.1; O2SAT 100
[2024-04-07] MEDS: THERAHONEY GEL 1.5 OZ TUBE TP SCH (18:51)
[2024-04-07 20:00] VITALS: BP 116/72; TEMP 98.3; O2SAT 100
[2024-04-08] VITALS: BP 124/74; TEMP 97.9; O2SAT 100
[2024-04-08 04:00] VITALS: BP 120/81; TEMP 97.4; O2SAT 97
[2024-04-08 08:00] VITALS: BP 137/70; TEMP 97.8; O2SAT 99
[2024-04-08 08:12] LABS: BASOPHILS # (AUTO) 0.1 K/uL (0.0-0.2); BASOPHILS % (AUTO) 0.8 % (0.0-2.0); EOSINOPHILS # (AUTO) 0.3 K/uL (0.0-0.7); EOSINOPHILS % (AUTO) 4.6 % (0.0-6.0); HEMATOCRIT 36 % (39-51); HEMOGLOBIN 12.1 g/dL (13.5-17.5); LYMPHOCYTES # (AUTO) 1.3 K/uL (0.8-4.8); LYMPHOCYTES % (AUTO) 18.3 % (20.0-44.0); MEAN CORPUSCULAR HEMOGLOBIN 35 PG (26.0-33.0); MEAN CORPUSCULAR HGB CONC 34 g/dl (31.0-36.0); MEAN CORPUSCULAR VOLUME 103 fL (80-96); MONOCYTES # (AUTO) 0.7 K/uL (0.1-1.30); MONOCYTES % (AUTO) 9.9 % (2.0-12.0); NEUTROPHILS # (AUTO) 4.6 K/uL (1.8-8.9); NEUTROPHILS % (AUTO) 66.4 % (43.0-81.0); PLATELET COUNT (AUTO) 154 K/uL (150-450); RED BLOOD CELL COUNT(AUTO) 3.49 MIL/uL (4.5-6.0); RED CELL DISTRIBUTION WIDTH 18.4 % (11.5-15.0); WHITE BLOOD COUNT (AUTO) 6.9 K/uL (4.3-11.0)
[2024-04-08 08:26] LABS: CALCIUM, SERUM 8.3 mg/dL (8.5-10.1); CARBON DIOXIDE 20 mmol/L (21-32); CHLORIDE 111 mmol/L (98-107); CREATININE 0.9 mg/dL (0.6-1.3); GLUCOSE 100 mg/dL (74-106); MAGNESIUM 2.2 mg/dL (1.8-2.4); PHOSPHORUS 2.6 mg/dL (2.5-4.9); POTASSIUM 3.8 mmol/L (3.5-5.1); SODIUM SERUM 141 mmol/L (136-145); UREA NITROGEN, BLOOD 16 mg/dL (7-18)
[2024-04-08] MEDS: MAGNESIUM HYDROXIDE 30 ML UDC PO ONE (10:27)
[2024-04-08] MEDS: IV D5W 1,000 ML IV ONE (10:37)
[2024-04-08 12:00] VITALS: BP 139/69; TEMP 97.9; O2SAT 100
[2024-04-08] MEDS ORDERED: POTASSIUM CHLORIDE 20 MEQ POWDER PACKET GT SCH (14:30)
[2024-04-08 16:00] VITALS: BP 120/70; TEMP 97.9; O2SAT 100
[2024-04-08] MEDS: ARGININE/GLUTAMINE/CALCIUM BMB 1 EACH POWD.PACK PO SCH (16:12)
[2024-04-08 20:17] VITALS: BP 136/73; TEMP 98.2; O2SAT 99
[2024-04-09 00:39] VITALS: BP 131/71; TEMP 98.2; O2SAT 99
[2024-04-09 04:10] VITALS: BP 122/72; TEMP 98.2; O2SAT 98
[2024-04-09 08:00] VITALS: BP 132/70; TEMP 98.2; O2SAT 100
[2024-04-09 12:00] VITALS: BP 130/74; TEMP 98; O2SAT 100
[2024-04-09 16:00] VITALS: BP 138/66; TEMP 98.2; O2SAT 100
[2024-04-09 20:00] VITALS: BP 131/74; TEMP 98.6; O2SAT 98
[2024-04-10 04:00] VITALS: BP 128/71; TEMP 98.8; O2SAT 98
[2024-04-10 12:00] VITALS: BP 128/70; TEMP 98.9; O2SAT 98
[2024-04-10 20:00] VITALS: BP 123/67; TEMP 98.4; O2SAT 100
[2024-04-11 04:00] VITALS: BP 122/66; TEMP 98.6; O2SAT 96
[2024-04-11 08:19] LABS: BASOPHILS # (AUTO) 0.1 K/uL (0.0-0.2); BASOPHILS % (AUTO) 0.9 % (0.0-2.0); EOSINOPHILS # (AUTO) 0.3 K/uL (0.0-0.7); EOSINOPHILS % (AUTO) 5.1 % (0.0-6.0); HEMATOCRIT 31 % (39-51); LYMPHOCYTES # (AUTO) 1.7 K/uL (0.8-4.8); LYMPHOCYTES % (AUTO) 28.3 % (20.0-44.0); MEAN CORPUSCULAR HEMOGLOBIN 35 PG (26.0-33.0); MEAN CORPUSCULAR HGB CONC 35 g/dl (31.0-36.0); MEAN CORPUSCULAR VOLUME 99 fL (80-96); MONOCYTES # (AUTO) 0.6 K/uL (0.1-1.30); MONOCYTES % (AUTO) 10.3 % (2.0-12.0); NEUTROPHILS # (AUTO) 3.4 K/uL (1.8-8.9); NEUTROPHILS % (AUTO) 55.4 % (43.0-81.0); PLATELET COUNT (AUTO) 144 K/uL (150-450); RED BLOOD CELL COUNT(AUTO) 3.16 MIL/uL (4.5-6.0); RED CELL DISTRIBUTION WIDTH 18.4 % (11.5-15.0); WHITE BLOOD COUNT (AUTO) 6.2 K/uL (4.3-11.0)
[2024-04-11 08:31] LABS: SERUM AMMONIA 41 umol/L (11-32)
[2024-04-11 08:34] LABS: CALCIUM, SERUM 8.2 mg/dL (8.5-10.1); CARBON DIOXIDE 26 mmol/L (21-32); CHLORIDE 109 mmol/L (98-107); CREATININE 0.9 mg/dL (0.6-1.3); GLUCOSE 89 mg/dL (74-106); POTASSIUM 3.9 mmol/L (3.5-5.1); SODIUM SERUM 139 mmol/L (136-145); UREA NITROGEN, BLOOD 13 mg/dL (7-18)
[2024-04-11 12:00] VITALS: BP 114/67; TEMP 98.8; O2SAT 96
[2024-04-11 16:00] VITALS: BP 104/67; TEMP 98.1; O2SAT 99
[2024-04-11 20:00] VITALS: BP 133/67; TEMP 98.6; O2SAT 99
[2024-04-12 04:00] VITALS: BP 125/73; TEMP 99; O2SAT 99
[2024-04-12 12:15] VITALS: BP 123/67; TEMP 98.4; O2SAT 100
[2024-04-12] MEDS ORDERED: IV NS 0.9% 250 ML IV ONE (13:29)
[2024-04-12] MEDS ORDERED: IOHEXOL-350 100 ML VIAL IV ONE (13:29)
[2024-04-12] MEDS ORDERED: CT SWABBABLE VALVE TRANS SET 1 EA INFUS.SET MC ONE (13:29)
[2024-04-12 20:00] VITALS: BP 109/68; TEMP 98.6; O2SAT 99
[2024-04-13 04:00] VITALS: BP 100/64; TEMP 98.8; O2SAT 95
[2024-04-13 08:00] VITALS: BP 118/66; TEMP 98.1; O2SAT 100
[2024-04-13 16:00] VITALS: BP 119/63; TEMP 98.1; O2SAT 100
[2024-04-14] VITALS: BP 122/84; TEMP 98.6; O2SAT 97
[2024-04-14 08:00] VITALS: BP 120/72; TEMP 98; O2SAT 100
[2024-04-14 08:07] LABS: BASOPHILS % (AUTO) 0.5 % (0.0-2.0); EOSINOPHILS # (AUTO) 0.4 K/uL (0.0-0.7); EOSINOPHILS % (AUTO) 4.9 % (0.0-6.0); HEMATOCRIT 35 % (39-51); HEMOGLOBIN 12.1 g/dL (13.5-17.5); LYMPHOCYTES # (AUTO) 2.1 K/uL (0.8-4.8); LYMPHOCYTES % (AUTO) 26.8 % (20.0-44.0); MEAN CORPUSCULAR HEMOGLOBIN 35 PG (26.0-33.0); MEAN CORPUSCULAR HGB CONC 35 g/dl (31.0-36.0); MEAN CORPUSCULAR VOLUME 100 fL (80-96); MONOCYTES # (AUTO) 0.8 K/uL (0.1-1.30); MONOCYTES % (AUTO) 10.5 % (2.0-12.0); NEUTROPHILS # (AUTO) 4.4 K/uL (1.8-8.9); NEUTROPHILS % (AUTO) 57.3 % (43.0-81.0); PLATELET COUNT (AUTO) 173 K/uL (150-450); RED BLOOD CELL COUNT(AUTO) 3.47 MIL/uL (4.5-6.0); RED CELL DISTRIBUTION WIDTH 19.2 % (11.5-15.0); WHITE BLOOD COUNT (AUTO) 7.6 K/uL (4.3-11.0)
[2024-04-14 08:23] LABS: SERUM AMMONIA 30 umol/L (11-32)
[2024-04-14 08:27] LABS: ALANINE AMINOTRANSFERASE 39 U/L (12-78); ALBUMIN 2.3 g/dL (3.4-5.0); ALKALINE PHOSPHATASE 205 U/L (46-116); ASPARTATE AMINOTRANSFERASE 48 U/L (15-37); BILIRUBIN,DIRECT 0.6 mg/dL (0.0-0.2); BILIRUBIN,TOTAL 2.4 mg/dL (0.2-1.0); CALCIUM, SERUM 8.1 mg/dL (8.5-10.1); CARBON DIOXIDE 27 mmol/L (21-32); CHLORIDE 104 mmol/L (98-107); CREATININE 0.9 mg/dL (0.6-1.3); GLUCOSE 81 mg/dL (74-106); MAGNESIUM 2.3 mg/dL (1.8-2.4); PHOSPHORUS 2.3 mg/dL (2.5-4.9); POTASSIUM 3.7 mmol/L (3.5-5.1); SODIUM SERUM 138 mmol/L (136-145); TOTAL PROTEIN, SERUM 6.5 g/dL (6.4-8.2); UREA NITROGEN, BLOOD 11 mg/dL (7-18)
[2024-04-14 08:42] LABS: C-REACTIVE PROTEIN 1.1 mg/dL (0.0-0.30)
[2024-04-14] MEDS: MEROPENEM 500 MG in IV NS 0.9% 50 ML IV SCH (10:40)
[2024-04-14] MEDS ORDERED: CT SWABBABLE VALVE TRANS SET 1 EA INFUS.SET MC ONE (13:35)
[2024-04-14] MEDS ORDERED: IV NS 0.9% 250 ML IV ONE (13:35)
[2024-04-14] MEDS ORDERED: IOHEXOL-300 100 ML VIAL IV ONE (13:35)
[2024-04-14] MEDS: K PHOS NEUTRAL 250 MG TABLET PO ONE (15:31)
[2024-04-14 16:00] VITALS: BP 106/72; TEMP 97.8; O2SAT 100
[2024-04-14 16:51] LABS: RHEUMATOID FACTOR SCREEN NEGATIVE (NEGATIVE)
[2024-04-15] VITALS: BP 114/65; TEMP 98.8; O2SAT 94
[2024-04-15 05:09] LABS: HEPATITIS B CORE AB, TOTAL Negative (Negative); HEPATITIS B SURFACE AB Non Reactive (.)
[2024-04-15 06:12] LABS: FOLIC ACID 11.6 ng/mL (>3.0)
[2024-04-15 08:00] VITALS: BP 125/64; TEMP 97.7
[2024-04-15 08:10] LABS: AFP, TUMOR MARKER 4.8 ng/mL (0.0-6.4); CARBOHYDRATE AG 19-9 35 U/mL (0-35); IMMUNOGLOBULIN A, SERUM 676 mg/dL (61-437); IMMUNOGLOBULIN G, SERUM 1999 mg/dL (603-1613); IMMUNOGLOBULIN M, SERUM 92 mg/dL (15-143)
[2024-04-15] MEDS ORDERED: RIFA550T PO (09:05)
[2024-04-15] MEDS ORDERED: MERO500P IV (09:05)
[2024-04-15] MEDS ORDERED: LACT10SO58 PO (09:05)
[2024-04-15 10:11] LABS: *SPE A/G RATIO 0.7 (0.7-1.7); *SPE ALBUMIN 2.4 g/dL (2.9-4.4); *SPE ALPHA-1-GLOBULIN 0.2 g/dL (0.0-0.4); *SPE ALPHA-2-GLOBULIN 0.4 g/dL (0.4-1.0); *SPE BETA GLOBULIN 0.9 g/dL (0.7-1.3); *SPE GLOBULIN, TOTAL 3.6 g/dL (2.2-3.9); *SPE M-SPIKE Not Observed g/dL (Not Observed)
[2024-04-15] MEDS ORDERED: CT SWABBABLE VALVE TRANS SET 1 EA INFUS.SET MC ONE (13:03)
[2024-04-15] MEDS ORDERED: IOHEXOL-300 100 ML VIAL IV ONE (13:03)
[2024-04-15] MEDS ORDERED: IV NS 0.9% 250 ML IV ONE (13:04)
[2024-04-15 13:13] LABS: *ANA ANTI-CENTROMERE B AB <0.2 AI (0.0-0.9); *ANA ANTI-DNA(DS) AB, QN <1 IU/mL (0-9); *ANA ANTI-JO-1 <0.2 AI (0.0-0.9); *ANA ANTICHROMATIN ANTIBODY <0.2 AI (0.0-0.9); *ANA RNP ANTIBODIES 0.2 AI (0.0-0.9); *ANA SJOGREN'S ANTI-SS-A <0.2 AI (0.0-0.9); *ANA SJOGREN'S ANTI-SS-B <0.2 AI (0.0-0.9); *ANAANTI-SCLERODERMA-70 AB <0.2 AI (0.0-0.9); *ANASMITH AB <0.2 AI (0.0-0.9); FREE KAPPA LT CHAINS SERUM 78.3 mg/L (3.3-19.4); KAPPA/LAMBDA RATIO SERUM 1.28 (0.26-1.65)
[2024-04-15 16:00] VITALS: BP 125/64; TEMP 97.7
== END 2024-04-15 23:38 | disposition home health service (06) | DRG 951 ==
LOC: ER 12:59 → EDBD 13:50 → TELE1 13:50 → MEDSG1 04-09 09:57
PROVIDERS: ADMIT Nurse Practitioner Acute Care; ATTEND Internal Medicine
PROC: 0KBW0ZZ Excision of Left Foot Muscle, Open Approach (ICD-10-PCS; principal; 2024-04-09)
DX: N39.0 Urinary tract infection, site not specified (principal); I21.4 Non-ST elevation (NSTEMI) myocardial infarction; G93.41 Metabolic encephalopathy; E44.0 Moderate protein-calorie malnutrition; K76.82 Hepatic encephalopathy; E72.20 Disorder of urea cycle metabolism, unspecified; L89.154 Pressure ulcer of sacral region, stage 4; L89.624 Pressure ulcer of left heel, stage 4; E87.0 Hyperosmolality and hypernatremia; D69.6 Thrombocytopenia, unspecified; N17.9 Acute kidney failure, unspecified; C22.0 Liver cell carcinoma; K74.60 Unspecified cirrhosis of liver; Z20.822 Contact with and (suspected) exposure to COVID-19; I10 Essential (primary) hypertension; Z79.899 Other long term (current) drug therapy; D53.1 Other megaloblastic anemias, not elsewhere classified; E88.09 Other disorders of plasma-protein metabolism, not elsewhere classified; M89.8X9 Other specified disorders of bone, unspecified site; E80.6 Other disorders of bilirubin metabolism; E86.9 Volume depletion, unspecified; E03.9 Hypothyroidism, unspecified; Z86.73 Personal history of transient ischemic attack (TIA), and cerebral infarction without residual deficits; Z87.440 Personal history of urinary (tract) infections; M19.90 Unspecified osteoarthritis, unspecified site; M24.572 Contracture, left ankle; M24.571 Contracture, right ankle; D64.9 Anemia, unspecified; Z16.12 Extended spectrum beta lactamase (ESBL) resistance; R74.01 Elevation of levels of liver transaminase levels; S91.302A Unspecified open wound, left foot, initial encounter; S91.301A Unspecified open wound, right foot, initial encounter; X58.XXXA Exposure to other specified factors, initial encounter; Y92.9 Unspecified place or not applicable
CPT/HCPCS: 31720; 36415; 70450-TC; 71045-TC; 71260-TC; 73630-TC; 74018; 74178; 76705-TC; 80048-TC; 80076-TC; 81001; 82105; 82140-TC; 82378; 82607-TC; 82728-TC; 82784; 82962-TC; 83540-TC; 83605-TC; 83735-TC; 84100-TC; 84155; 84165; 84439-TC; 84443-TC; 84484-TC; 85025-TC; 85730-TC; 86140-TC; 86225; 86235; 86301; 86334; 86431-TC; 86704; 86706; 86803; 87040-TC; 87086-TC; 87340; 92526; 92611-TC; 97110-TC; 97112-TC; 97116-TC; 97530-TC; 97535-TC; A4217; A4223; A6403; G0378; G0480; J0692; J1650; J2185; J7030; J7040; J7042; J7050; J7060; J7070; J7120; Q9967

== ENCOUNTER 2024-05-03 13:09 | Inpatient (IN) | payer OTHER, MEDICARE ==
[~2024-05-03] VITALS: Ht 170.2 cm; Wt 57.2 kg
[~2024-05-03 13:09] MED LIST changes: -ACET-637 PO; -ACET-73 PO; -ACET-868 PO; -AMIN30LI66 PO; -ASCO-340 PO; -BISA10SU11 RC; -DOCU100C36 PO; -ENOX30DI5 SQ; -FERR325T23 PO; -FOLI0.8C PO; -HYDR-4209 PO; +LACT10SO58 PO; -LOPE-195 PO; -MAGN400O6 PO; -MECO10005 PO; +MEGE400O6 PO; -MELA10TA10 PO; -MERO1PIG IV; +MERO500P IV; -MULT-213 PO; +RIFA550T PO; -ZINC50TA69 PO
[2024-05-03 14:44] LABS: BASOPHILS % (AUTO) 0.4 % (0.0-2.0); EOSINOPHILS # (AUTO) 0.3 K/uL (0.0-0.7); EOSINOPHILS % (AUTO) 2.8 % (0.0-6.0); HEMATOCRIT 34 % (39-51); HEMOGLOBIN 11.9 g/dL (13.5-17.5); LYMPHOCYTES # (AUTO) 1.2 K/uL (0.8-4.8); LYMPHOCYTES % (AUTO) 12.4 % (20.0-44.0); MEAN CORPUSCULAR HEMOGLOBIN 35 PG (26.0-33.0); MEAN CORPUSCULAR HGB CONC 36 g/dl (31.0-36.0); MEAN CORPUSCULAR VOLUME 99 fL (80-96); MONOCYTES # (AUTO) 0.8 K/uL (0.1-1.30); MONOCYTES % (AUTO) 7.8 % (2.0-12.0); NEUTROPHILS # (AUTO) 7.4 K/uL (1.8-8.9); NEUTROPHILS % (AUTO) 76.6 % (43.0-81.0); PLATELET COUNT (AUTO) 194 K/uL (150-450); RED BLOOD CELL COUNT(AUTO) 3.41 MIL/uL (4.5-6.0); RED CELL DISTRIBUTION WIDTH 16.4 % (11.5-15.0); WHITE BLOOD COUNT (AUTO) 9.7 K/uL (4.3-11.0)
[2024-05-03 14:58] LABS: INR 1.36 (0.91-1.10); PROTHROMBIN TIME 14.1 SECS (9.2-11.1)
[2024-05-03 15:02] LABS: CALCIUM, SERUM 8.8 mg/dL (8.5-10.1); CARBON DIOXIDE 23 mmol/L (21-32); CHLORIDE 110 mmol/L (98-107); GLUCOSE 109 mg/dL (74-106); POTASSIUM 4.1 mmol/L (3.5-5.1); SODIUM SERUM 142 mmol/L (136-145); UREA NITROGEN, BLOOD 11 mg/dL (7-18)
[2024-05-03 15:03] LABS: SERUM AMMONIA 63 umol/L (11-32)
[2024-05-03 15:08] LABS: ALANINE AMINOTRANSFERASE 40 U/L (12-78); ALBUMIN 2.7 g/dL (3.4-5.0); ALKALINE PHOSPHATASE 181 U/L (46-116); ASPARTATE AMINOTRANSFERASE 51 U/L (15-37); BILIRUBIN,DIRECT 0.7 mg/dL (0.0-0.2); TOTAL PROTEIN, SERUM 7.2 g/dL (6.4-8.2)
[2024-05-03 15:12] LABS: LACTIC ACID 2.7 mmol/L (0.4-2.0)
[2024-05-03 15:52] LABS: APPEARANCE,URINE CLEAR (CLEAR); BILIRUBIN,URINE NEGATIVE (NEGATIVE); BLOOD, URINE NEGATIVE Ery/uL (NEGATIVE); COLOR,URINE YELLOW (YELLOW); KETONES,URINE NEGATIVE (NEGATIVE); LEUKOCYTE ESTERASE ,URINE NEGATIVE (NEGATIVE); NITRITE, URINE NEGATIVE (NEGATIVE); PH,URINE 7.5 (5.0-8.0); PROTEIN,URINE NEGATIVE (NEGATIVE); UGLUCOSE NEGATIVE (NEGATIVE); UROBILINOGEN,URINE 0.2 EU/dL (0.2)
[2024-05-03] MEDS ORDERED: LACTULOSE 10 G/15 ML UDC (PYXIS) PO PRN (17:00)
[2024-05-03] MEDS ORDERED: MAG HYDROX/AL HYDROX/SIMETH 30 ML UDC PO PRN (17:00)
[2024-05-03] MEDS ORDERED: MAGNESIUM HYDROXIDE 30 ML UDC PO PRN (17:00)
[2024-05-03] MEDS ORDERED: ONDANSETRON HCL/PF 4 MG/2 ML VIAL IVP PRN (17:00)
[2024-05-03] MEDS: MEGESTROL ACETATE SUSP 400 MG/10 ML UDC PO SCH (18:30)
[2024-05-03] MEDS: RIFAXIMIN 550 MG TABLET PO SCH (18:30)
[2024-05-03] MEDS: IV NS 0.9% 1,000 ML IV SCH (18:31)
[2024-05-03 19:09] VITALS: BP 142/71; TEMP 97.5; O2SAT 99
[2024-05-04 04:00] VITALS: BP 132/68; TEMP 98.1; O2SAT 98
[2024-05-04 06:31] LABS: BASOPHILS % (AUTO) 0.2 % (0.0-2.0); EOSINOPHILS # (AUTO) 0.3 K/uL (0.0-0.7); EOSINOPHILS % (AUTO) 3.1 % (0.0-6.0); HEMATOCRIT 33 % (39-51); HEMOGLOBIN 11.8 g/dL (13.5-17.5); LYMPHOCYTES % (AUTO) 9.4 % (20.0-44.0); MEAN CORPUSCULAR HEMOGLOBIN 36 PG (26.0-33.0); MEAN CORPUSCULAR HGB CONC 36 g/dl (31.0-36.0); MEAN CORPUSCULAR VOLUME 98 fL (80-96); MONOCYTES # (AUTO) 0.8 K/uL (0.1-1.30); MONOCYTES % (AUTO) 7.7 % (2.0-12.0); NEUTROPHILS # (AUTO) 8.4 K/uL (1.8-8.9); NEUTROPHILS % (AUTO) 79.6 % (43.0-81.0); PLATELET COUNT (AUTO) 182 K/uL (150-450); RED BLOOD CELL COUNT(AUTO) 3.31 MIL/uL (4.5-6.0); RED CELL DISTRIBUTION WIDTH 16.5 % (11.5-15.0); WHITE BLOOD COUNT (AUTO) 10.5 K/uL (4.3-11.0)
[2024-05-04 06:52] LABS: ALANINE AMINOTRANSFERASE 36 U/L (12-78); ALBUMIN 2.4 g/dL (3.4-5.0); ALKALINE PHOSPHATASE 159 U/L (46-116); ASPARTATE AMINOTRANSFERASE 39 U/L (15-37); BILIRUBIN,TOTAL 3.4 mg/dL (0.2-1.0); CALCIUM, SERUM 8.5 mg/dL (8.5-10.1); CARBON DIOXIDE 22 mmol/L (21-32); CHLORIDE 112 mmol/L (98-107); CREATININE 0.8 mg/dL (0.6-1.3); GLUCOSE 112 mg/dL (74-106); MAGNESIUM 1.8 mg/dL (1.8-2.4); POTASSIUM 3.8 mmol/L (3.5-5.1); SODIUM SERUM 142 mmol/L (136-145); TOTAL PROTEIN, SERUM 6.6 g/dL (6.4-8.2); UREA NITROGEN, BLOOD 11 mg/dL (7-18)
[2024-05-04] MEDS: PANTOPRAZOLE 40 MG TABLET.DR PO SCH (07:58)
[2024-05-04 08:07] LABS: LACTIC ACID 2.3 mmol/L (0.4-2.0)
[2024-05-04] MEDS: TAMSULOSIN 0.4 MG CAP.SR.24H PO SCH (09:00)
[2024-05-04] MEDS: LACTULOSE 10 G/15 ML UDC (PYXIS) PO SCH (10:00)
[2024-05-04] MEDS: Z GUARD REMEDY 4 OZ OINT TP SCH (12:59)
[2024-05-04 16:00] VITALS: BP 141/68; TEMP 98.1; O2SAT 98
[2024-05-04] MEDS: LACTULOSE 10 G/15 ML UDC (PYXIS) NG SCH (20:34)
[2024-05-05 04:00] VITALS: BP 154/76; TEMP 97.7; O2SAT 99
[2024-05-05 07:07] LABS: SERUM AMMONIA 63 umol/L (11-32)
[2024-05-05 07:08] LABS: ALANINE AMINOTRANSFERASE 34 U/L (12-78); ALBUMIN 2.4 g/dL (3.4-5.0); ALKALINE PHOSPHATASE 167 U/L (46-116); ASPARTATE AMINOTRANSFERASE 37 U/L (15-37); BILIRUBIN,TOTAL 3.6 mg/dL (0.2-1.0); CALCIUM, SERUM 8.3 mg/dL (8.5-10.1); CARBON DIOXIDE 20 mmol/L (21-32); CHLORIDE 114 mmol/L (98-107); GLUCOSE 98 mg/dL (74-106); MAGNESIUM 1.9 mg/dL (1.8-2.4); PHOSPHORUS 2.8 mg/dL (2.5-4.9); POTASSIUM 3.5 mmol/L (3.5-5.1); SODIUM SERUM 144 mmol/L (136-145); TOTAL PROTEIN, SERUM 6.7 g/dL (6.4-8.2); UREA NITROGEN, BLOOD 12 mg/dL (7-18)
[2024-05-05 07:15] LABS: BASOPHILS % (AUTO) 0.4 % (0.0-2.0); EOSINOPHILS # (AUTO) 0.5 K/uL (0.0-0.7); EOSINOPHILS % (AUTO) 4.6 % (0.0-6.0); HEMATOCRIT 32 % (39-51); HEMOGLOBIN 11.2 g/dL (13.5-17.5); LYMPHOCYTES # (AUTO) 1.6 K/uL (0.8-4.8); LYMPHOCYTES % (AUTO) 15.1 % (20.0-44.0); MEAN CORPUSCULAR HEMOGLOBIN 36 PG (26.0-33.0); MEAN CORPUSCULAR HGB CONC 35 g/dl (31.0-36.0); MEAN CORPUSCULAR VOLUME 102 fL (80-96); MONOCYTES # (AUTO) 1.1 K/uL (0.1-1.30); MONOCYTES % (AUTO) 10.5 % (2.0-12.0); NEUTROPHILS # (AUTO) 7.1 K/uL (1.8-8.9); NEUTROPHILS % (AUTO) 69.4 % (43.0-81.0); PLATELET COUNT (AUTO) 179 K/uL (150-450); RED BLOOD CELL COUNT(AUTO) 3.14 MIL/uL (4.5-6.0); RED CELL DISTRIBUTION WIDTH 16.4 % (11.5-15.0); WHITE BLOOD COUNT (AUTO) 10.3 K/uL (4.3-11.0)
[2024-05-05] MEDS: THERAHONEY GEL 1.5 OZ TUBE TP SCH (09:03)
[2024-05-05] MEDS: LACTULOSE 10 G/15 ML UDC (PYXIS) NG SCH (11:59)
[2024-05-05 16:10] VITALS: BP 132/68; TEMP 98.1; O2SAT 98
[2024-05-06 04:00] VITALS: BP 150/87; TEMP 98.5; O2SAT 98
[2024-05-06 06:56] LABS: BASOPHILS % (AUTO) 0.4 % (0.0-2.0); EOSINOPHILS # (AUTO) 0.5 K/uL (0.0-0.7); EOSINOPHILS % (AUTO) 7.6 % (0.0-6.0); HEMATOCRIT 30 % (39-51); HEMOGLOBIN 10.7 g/dL (13.5-17.5); LYMPHOCYTES # (AUTO) 1.3 K/uL (0.8-4.8); LYMPHOCYTES % (AUTO) 18.5 % (20.0-44.0); MEAN CORPUSCULAR HEMOGLOBIN 36 PG (26.0-33.0); MEAN CORPUSCULAR HGB CONC 36 g/dl (31.0-36.0); MEAN CORPUSCULAR VOLUME 102 fL (80-96); MONOCYTES # (AUTO) 0.6 K/uL (0.1-1.30); MONOCYTES % (AUTO) 8.6 % (2.0-12.0); NEUTROPHILS # (AUTO) 4.5 K/uL (1.8-8.9); NEUTROPHILS % (AUTO) 64.9 % (43.0-81.0); PLATELET COUNT (AUTO) 140 K/uL (150-450); RED BLOOD CELL COUNT(AUTO) 2.97 MIL/uL (4.5-6.0); RED CELL DISTRIBUTION WIDTH 16.3 % (11.5-15.0)
[2024-05-06 07:05] LABS: SERUM AMMONIA 16 umol/L (11-32)
[2024-05-06 07:41] LABS: ALANINE AMINOTRANSFERASE 27 U/L (12-78); ALBUMIN 2.2 g/dL (3.4-5.0); ALKALINE PHOSPHATASE 154 U/L (46-116); ASPARTATE AMINOTRANSFERASE 42 U/L (15-37); BILIRUBIN,TOTAL 3.2 mg/dL (0.2-1.0); CALCIUM, SERUM 8.1 mg/dL (8.5-10.1); CARBON DIOXIDE 18 mmol/L (21-32); CHLORIDE 114 mmol/L (98-107); CREATININE 0.9 mg/dL (0.6-1.3); GLUCOSE 90 mg/dL (74-106); MAGNESIUM 1.9 mg/dL (1.8-2.4); POTASSIUM 3.7 mmol/L (3.5-5.1); SODIUM SERUM 144 mmol/L (136-145); TOTAL PROTEIN, SERUM 5.9 g/dL (6.4-8.2); UREA NITROGEN, BLOOD 10 mg/dL (7-18)
[2024-05-06 08:00] VITALS: BP 139/74; TEMP 97.6; O2SAT 100
[2024-05-06 16:00] VITALS: BP 133/60; TEMP 97.9; O2SAT 100
[2024-05-06 20:00] VITALS: BP 137/69; TEMP 97.9; O2SAT 98
[2024-05-07 04:00] VITALS: BP 130/70; TEMP 97.9; O2SAT 98
[2024-05-07 06:43] LABS: BASOPHILS % (AUTO) 0.3 % (0.0-2.0); EOSINOPHILS # (AUTO) 0.4 K/uL (0.0-0.7); EOSINOPHILS % (AUTO) 5.6 % (0.0-6.0); HEMATOCRIT 27 % (39-51); MEAN CORPUSCULAR HEMOGLOBIN 36 PG (26.0-33.0); MEAN CORPUSCULAR HGB CONC 37 g/dl (31.0-36.0); MEAN CORPUSCULAR VOLUME 98 fL (80-96); MONOCYTES # (AUTO) 0.7 K/uL (0.1-1.30); MONOCYTES % (AUTO) 9.8 % (2.0-12.0); NEUTROPHILS # (AUTO) 5.1 K/uL (1.8-8.9); NEUTROPHILS % (AUTO) 70.3 % (43.0-81.0); PLATELET COUNT (AUTO) 137 K/uL (150-450); RED BLOOD CELL COUNT(AUTO) 2.75 MIL/uL (4.5-6.0); RED CELL DISTRIBUTION WIDTH 15.9 % (11.5-15.0); WHITE BLOOD COUNT (AUTO) 7.3 K/uL (4.3-11.0)
[2024-05-07 07:12] LABS: MAGNESIUM 1.5 mg/dL (1.8-2.4)
[2024-05-07] MEDS: Magnesium 1GM/D5W 100ML PREMIX 100 ML IV SCH (10:33)
[2024-05-07 12:00] VITALS: BP 130/72; TEMP 98; O2SAT 98
[2024-05-07] MEDS: IV NS 0.9% 1,000 ML IV PRN (13:16)
[2024-05-07 23:52] VITALS: BP 131/68; TEMP 97.9; O2SAT 99
[2024-05-08 05:18] VITALS: BP 153/79; TEMP 98.1; O2SAT 98
[2024-05-08 06:52] LABS: BASOPHILS % (AUTO) 0.3 % (0.0-2.0); EOSINOPHILS # (AUTO) 0.4 K/uL (0.0-0.7); EOSINOPHILS % (AUTO) 4.4 % (0.0-6.0); HEMATOCRIT 31 % (39-51); HEMOGLOBIN 11.3 g/dL (13.5-17.5); LYMPHOCYTES # (AUTO) 1.4 K/uL (0.8-4.8); LYMPHOCYTES % (AUTO) 14.9 % (20.0-44.0); MEAN CORPUSCULAR HEMOGLOBIN 37 PG (26.0-33.0); MEAN CORPUSCULAR HGB CONC 37 g/dl (31.0-36.0); MEAN CORPUSCULAR VOLUME 100 fL (80-96); MONOCYTES # (AUTO) 1.1 K/uL (0.1-1.30); MONOCYTES % (AUTO) 11.2 % (2.0-12.0); NEUTROPHILS # (AUTO) 6.6 K/uL (1.8-8.9); NEUTROPHILS % (AUTO) 69.2 % (43.0-81.0); PLATELET COUNT (AUTO) 160 K/uL (150-450); RED BLOOD CELL COUNT(AUTO) 3.08 MIL/uL (4.5-6.0); RED CELL DISTRIBUTION WIDTH 16.4 % (11.5-15.0); WHITE BLOOD COUNT (AUTO) 9.5 K/uL (4.3-11.0)
[2024-05-08 06:59] LABS: CALCIUM, SERUM 8.8 mg/dL (8.5-10.1); CARBON DIOXIDE 27 mmol/L (21-32); CHLORIDE 112 mmol/L (98-107); CREATININE 0.8 mg/dL (0.6-1.3); GLUCOSE 104 mg/dL (74-106); MAGNESIUM 1.8 mg/dL (1.8-2.4); POTASSIUM 3.1 mmol/L (3.5-5.1); SODIUM SERUM 143 mmol/L (136-145); UREA NITROGEN, BLOOD 5 mg/dL (7-18)
[2024-05-08 08:00] VITALS: BP 137/67; TEMP 98; O2SAT 97
[2024-05-08] MEDS: POTASSIUM CL. PREMIX PERIPHER. 50 ML IV SCH (10:36)
[2024-05-08 16:00] VITALS: BP 133/64; TEMP 97.8; O2SAT 97
[2024-05-08 20:00] VITALS: BP 151/71; TEMP 97.9; O2SAT 94
[2024-05-09 04:00] VITALS: BP 133/72; TEMP 97.9; O2SAT 92
[2024-05-09 08:00] VITALS: BP 123/69; TEMP 98.1; O2SAT 98
[2024-05-09 08:40] LABS: BASOPHILS % (AUTO) 0.1 % (0.0-2.0); EOSINOPHILS % (AUTO) 0.3 % (0.0-6.0); HEMATOCRIT 32 % (39-51); HEMOGLOBIN 11.5 g/dL (13.5-17.5); LYMPHOCYTES # (AUTO) 0.6 K/uL (0.8-4.8); LYMPHOCYTES % (AUTO) 4.1 % (20.0-44.0); MEAN CORPUSCULAR HEMOGLOBIN 36 PG (26.0-33.0); MEAN CORPUSCULAR HGB CONC 36 g/dl (31.0-36.0); MEAN CORPUSCULAR VOLUME 99 fL (80-96); MONOCYTES # (AUTO) 0.9 K/uL (0.1-1.30); MONOCYTES % (AUTO) 5.4 % (2.0-12.0); NEUTROPHILS # (AUTO) 14.2 K/uL (1.8-8.9); NEUTROPHILS % (AUTO) 90.1 % (43.0-81.0); PLATELET COUNT (AUTO) 189 K/uL (150-450); RED BLOOD CELL COUNT(AUTO) 3.24 MIL/uL (4.5-6.0); RED CELL DISTRIBUTION WIDTH 16.8 % (11.5-15.0); WHITE BLOOD COUNT (AUTO) 15.8 K/uL (4.3-11.0)
[2024-05-09 09:24] LABS: ALANINE AMINOTRANSFERASE 28 U/L (12-78); ALBUMIN 2.1 g/dL (3.4-5.0); ALKALINE PHOSPHATASE 153 U/L (46-116); ASPARTATE AMINOTRANSFERASE 34 U/L (15-37); BILIRUBIN,TOTAL 4.6 mg/dL (0.2-1.0); CALCIUM, SERUM 8.9 mg/dL (8.5-10.1); CARBON DIOXIDE 19 mmol/L (21-32); CHLORIDE 112 mmol/L (98-107); CREATININE 1.1 mg/dL (0.6-1.3); GLUCOSE 113 mg/dL (74-106); PHOSPHORUS 2.7 mg/dL (2.5-4.9); POTASSIUM 3.2 mmol/L (3.5-5.1); SODIUM SERUM 142 mmol/L (136-145); TOTAL PROTEIN, SERUM 6.1 g/dL (6.4-8.2); UREA NITROGEN, BLOOD 6 mg/dL (7-18)
[2024-05-09] MEDS: POTASSIUM CL. PREMIX PERIPHER. 50 ML IV SCH (10:57)
[2024-05-09 16:00] VITALS: BP 122/66; TEMP 97.5; O2SAT 100
[2024-05-09 20:00] VITALS: BP 147/77; TEMP 98.1; O2SAT 100
[2024-05-10 04:00] VITALS: BP 133/75; TEMP 98.3; O2SAT 100
[2024-05-10 06:28] LABS: BASOPHILS # (AUTO) 0.1 K/uL (0.0-0.2); BASOPHILS % (AUTO) 0.5 % (0.0-2.0); EOSINOPHILS # (AUTO) 0.4 K/uL (0.0-0.7); EOSINOPHILS % (AUTO) 3.6 % (0.0-6.0); HEMATOCRIT 29 % (39-51); HEMOGLOBIN 10.6 g/dL (13.5-17.5); LYMPHOCYTES # (AUTO) 1.3 K/uL (0.8-4.8); LYMPHOCYTES % (AUTO) 12.2 % (20.0-44.0); MEAN CORPUSCULAR HEMOGLOBIN 36 PG (26.0-33.0); MEAN CORPUSCULAR HGB CONC 36 g/dl (31.0-36.0); MEAN CORPUSCULAR VOLUME 100 fL (80-96); MONOCYTES # (AUTO) 1.1 K/uL (0.1-1.30); MONOCYTES % (AUTO) 9.6 % (2.0-12.0); NEUTROPHILS # (AUTO) 8.1 K/uL (1.8-8.9); NEUTROPHILS % (AUTO) 74.1 % (43.0-81.0); PLATELET COUNT (AUTO) 161 K/uL (150-450); RED BLOOD CELL COUNT(AUTO) 2.93 MIL/uL (4.5-6.0); RED CELL DISTRIBUTION WIDTH 17.1 % (11.5-15.0)
[2024-05-10 06:48] LABS: ALANINE AMINOTRANSFERASE 24 U/L (12-78); ALKALINE PHOSPHATASE 156 U/L (46-116); ASPARTATE AMINOTRANSFERASE 28 U/L (15-37); BILIRUBIN,TOTAL 3.3 mg/dL (0.2-1.0); CALCIUM, SERUM 8.3 mg/dL (8.5-10.1); CARBON DIOXIDE 19 mmol/L (21-32); CHLORIDE 113 mmol/L (98-107); CREATININE 0.9 mg/dL (0.6-1.3); GLUCOSE 121 mg/dL (74-106); MAGNESIUM 1.9 mg/dL (1.8-2.4); PHOSPHORUS 2.6 mg/dL (2.5-4.9); POTASSIUM 3.4 mmol/L (3.5-5.1); SODIUM SERUM 141 mmol/L (136-145); TOTAL PROTEIN, SERUM 5.6 g/dL (6.4-8.2); UREA NITROGEN, BLOOD 6 mg/dL (7-18)
[2024-05-10 07:08] LABS: ALBUMIN 1.9 g/dL (3.4-5.0)
[2024-05-10 08:00] VITALS: BP 110/61; TEMP 97.3; O2SAT 100
[2024-05-10] MEDS: POTASSIUM CL. PREMIX PERIPHER. 50 ML IV SCH (10:28)
[2024-05-10 16:00] VITALS: BP 113/63; TEMP 97.3; O2SAT 100
[2024-05-10 20:00] VITALS: BP 137/67; TEMP 98; O2SAT 100
[2024-05-11 04:00] VITALS: BP 129/62; TEMP 98; O2SAT 100
[2024-05-11 06:39] LABS: BASOPHILS % (AUTO) 0.2 % (0.0-2.0); EOSINOPHILS # (AUTO) 0.3 K/uL (0.0-0.7); EOSINOPHILS % (AUTO) 3.6 % (0.0-6.0); HEMATOCRIT 27 % (39-51); HEMOGLOBIN 9.7 g/dL (13.5-17.5); LYMPHOCYTES # (AUTO) 0.7 K/uL (0.8-4.8); LYMPHOCYTES % (AUTO) 8.2 % (20.0-44.0); MEAN CORPUSCULAR HEMOGLOBIN 36 PG (26.0-33.0); MEAN CORPUSCULAR HGB CONC 36 g/dl (31.0-36.0); MEAN CORPUSCULAR VOLUME 100 fL (80-96); MONOCYTES # (AUTO) 0.7 K/uL (0.1-1.30); NEUTROPHILS # (AUTO) 6.8 K/uL (1.8-8.9); PLATELET COUNT (AUTO) 142 K/uL (150-450); WHITE BLOOD COUNT (AUTO) 8.5 K/uL (4.3-11.0)
[2024-05-11 07:14] LABS: ALANINE AMINOTRANSFERASE 24 U/L (12-78); ALBUMIN 1.9 g/dL (3.4-5.0); ALKALINE PHOSPHATASE 143 U/L (46-116); ASPARTATE AMINOTRANSFERASE 24 U/L (15-37); BILIRUBIN,TOTAL 3.4 mg/dL (0.2-1.0); CALCIUM, SERUM 8.4 mg/dL (8.5-10.1); CARBON DIOXIDE 22 mmol/L (21-32); CHLORIDE 113 mmol/L (98-107); CREATININE 0.8 mg/dL (0.6-1.3); GLUCOSE 116 mg/dL (74-106); MAGNESIUM 1.6 mg/dL (1.8-2.4); PHOSPHORUS 2.7 mg/dL (2.5-4.9); POTASSIUM 3.7 mmol/L (3.5-5.1); SODIUM SERUM 143 mmol/L (136-145); TOTAL PROTEIN, SERUM 5.5 g/dL (6.4-8.2); UREA NITROGEN, BLOOD 6 mg/dL (7-18)
[2024-05-11 08:00] VITALS: BP 124/64; TEMP 97.3; O2SAT 100
[2024-05-11] MEDS: Z GUARD REMEDY 4 OZ OINT TP PRN (08:17)
[2024-05-11] MEDS: Magnesium 1GM/D5W 100ML PREMIX 100 ML IV SCH (09:42)
[2024-05-11] MEDS: PHYTONADIONE INJ 10 MG/1 ML AMPUL SQ ONE (14:17)
[2024-05-11 16:00] VITALS: BP 124/70; TEMP 97.3; O2SAT 100
[2024-05-11 20:00] VITALS: BP 121/69; TEMP 97.5; O2SAT 96
[2024-05-12 04:59] VITALS: BP 125/66; TEMP 97.7; O2SAT 96
[2024-05-12 07:11] LABS: BASOPHILS % (AUTO) 0.2 % (0.0-2.0); EOSINOPHILS # (AUTO) 0.4 K/uL (0.0-0.7); EOSINOPHILS % (AUTO) 4.1 % (0.0-6.0); HEMATOCRIT 28 % (39-51); HEMOGLOBIN 10.1 g/dL (13.5-17.5); LYMPHOCYTES # (AUTO) 0.8 K/uL (0.8-4.8); MEAN CORPUSCULAR HEMOGLOBIN 36 PG (26.0-33.0); MEAN CORPUSCULAR HGB CONC 37 g/dl (31.0-36.0); MEAN CORPUSCULAR VOLUME 99 fL (80-96); MONOCYTES # (AUTO) 0.8 K/uL (0.1-1.30); MONOCYTES % (AUTO) 9.2 % (2.0-12.0); NEUTROPHILS # (AUTO) 6.8 K/uL (1.8-8.9); NEUTROPHILS % (AUTO) 77.5 % (43.0-81.0); PLATELET COUNT (AUTO) 163 K/uL (150-450); RED BLOOD CELL COUNT(AUTO) 2.79 MIL/uL (4.5-6.0); RED CELL DISTRIBUTION WIDTH 17.5 % (11.5-15.0); WHITE BLOOD COUNT (AUTO) 8.7 K/uL (4.3-11.0)
[2024-05-12 07:14] LABS: INR 1.51 (0.91-1.10); PROTHROMBIN TIME 15.6 SECS (9.2-11.1)
[2024-05-12 07:33] LABS: ALANINE AMINOTRANSFERASE 20 U/L (12-78); ALBUMIN 1.9 g/dL (3.4-5.0); ALKALINE PHOSPHATASE 143 U/L (46-116); ASPARTATE AMINOTRANSFERASE 22 U/L (15-37); BILIRUBIN,TOTAL 2.6 mg/dL (0.2-1.0); CALCIUM, SERUM 8.2 mg/dL (8.5-10.1); CARBON DIOXIDE 24 mmol/L (21-32); CHLORIDE 113 mmol/L (98-107); CREATININE 0.9 mg/dL (0.6-1.3); GLUCOSE 113 mg/dL (74-106); MAGNESIUM 1.9 mg/dL (1.8-2.4); SODIUM SERUM 142 mmol/L (136-145); TOTAL PROTEIN, SERUM 5.5 g/dL (6.4-8.2); UREA NITROGEN, BLOOD 4 mg/dL (7-18)
[2024-05-12 08:00] VITALS: BP 101/61; TEMP 97.9; O2SAT 100
[2024-05-12] MEDS: POTASSIUM CHLORIDE 20 MEQ TAB.PRT.SR PO SCH (10:33)
[2024-05-12 15:34] VITALS: BP 108/61; TEMP 97.5; O2SAT 100
[2024-05-12 16:44] VITALS: BP 108/61; TEMP 97.5; O2SAT 100
[2024-05-12 20:00] VITALS: BP 129/65; TEMP 98.4; O2SAT 97
[2024-05-13 04:00] VITALS: BP 126/69; TEMP 98.3; O2SAT 96
[2024-05-13 07:05] LABS: BASOPHILS % (AUTO) 0.2 % (0.0-2.0); EOSINOPHILS # (AUTO) 0.4 K/uL (0.0-0.7); HEMATOCRIT 27 % (39-51); HEMOGLOBIN 9.6 g/dL (13.5-17.5); LYMPHOCYTES % (AUTO) 10.4 % (20.0-44.0); MEAN CORPUSCULAR HEMOGLOBIN 36 PG (26.0-33.0); MEAN CORPUSCULAR HGB CONC 35 g/dl (31.0-36.0); MEAN CORPUSCULAR VOLUME 101 fL (80-96); MONOCYTES % (AUTO) 10.4 % (2.0-12.0); NEUTROPHILS # (AUTO) 7.3 K/uL (1.8-8.9); PLATELET COUNT (AUTO) 140 K/uL (150-450); RED CELL DISTRIBUTION WIDTH 17.5 % (11.5-15.0); WHITE BLOOD COUNT (AUTO) 9.7 K/uL (4.3-11.0)
[2024-05-13 07:18] LABS: CALCIUM, SERUM 8.4 mg/dL (8.5-10.1); CREATININE 0.8 mg/dL (0.6-1.3); MAGNESIUM 1.7 mg/dL (1.8-2.4); PHOSPHORUS 2.9 mg/dL (2.5-4.9); POTASSIUM 3.3 mmol/L (3.5-5.1)
[2024-05-13 08:00] VITALS: BP 121/65; TEMP 99.1; O2SAT 98
[2024-05-13] MEDS: POTASSIUM CHLORIDE 20 MEQ TAB.PRT.SR PO SCH (11:13)
[2024-05-13] MEDS: MAGNESIUM OXIDE 400 MG TABLET PO ONE (11:13)
[2024-05-13 16:00] VITALS: BP 137/60; TEMP 97.7; O2SAT 98
[2024-05-13 17:11] LABS: IRON, SERUM 44 ug/dl (50-175); TOTAL IRON BINDING CAPACITY 108 ug/dl (250-450)
[2024-05-13 17:24] LABS: BILIRUBIN,DIRECT 0.7 mg/dL (0.0-0.2); BILIRUBIN,TOTAL 2.5 mg/dL (0.2-1.0)
[2024-05-13 18:16] LABS: FERRITIN 550 ng/mL (8-388)
[2024-05-13 20:00] VITALS: BP 117/54; TEMP 97.8; O2SAT 98
[2024-05-14] VITALS (8 sets, daily range): BP systolic 113–120; BP diastolic 46–65; TEMP 97.5–98.3; O2SAT 94–99
[2024-05-14 06:43] LABS: BASOPHILS % (AUTO) 0.2 % (0.0-2.0); EOSINOPHILS # (AUTO) 0.3 K/uL (0.0-0.7); EOSINOPHILS % (AUTO) 2.3 % (0.0-6.0); HEMATOCRIT 29 % (39-51); HEMOGLOBIN 10.4 g/dL (13.5-17.5); LYMPHOCYTES # (AUTO) 0.9 K/uL (0.8-4.8); LYMPHOCYTES % (AUTO) 7.8 % (20.0-44.0); MEAN CORPUSCULAR HEMOGLOBIN 36 PG (26.0-33.0); MEAN CORPUSCULAR HGB CONC 36 g/dl (31.0-36.0); MEAN CORPUSCULAR VOLUME 100 fL (80-96); MONOCYTES # (AUTO) 0.4 K/uL (0.1-1.30); MONOCYTES % (AUTO) 3.4 % (2.0-12.0); NEUTROPHILS # (AUTO) 9.5 K/uL (1.8-8.9); NEUTROPHILS % (AUTO) 86.3 % (43.0-81.0); PLATELET COUNT (AUTO) 186 K/uL (150-450); RED BLOOD CELL COUNT(AUTO) 2.89 MIL/uL (4.5-6.0); RED CELL DISTRIBUTION WIDTH 18.5 % (11.5-15.0)
[2024-05-14] MEDS: PANTOPRAZOLE 40 MG VIAL IV SCH (06:51)
[2024-05-14 07:01] LABS: CALCIUM, SERUM 8.3 mg/dL (8.5-10.1); CREATININE 0.8 mg/dL (0.6-1.3); MAGNESIUM 1.6 mg/dL (1.8-2.4); PHOSPHORUS 3.4 mg/dL (2.5-4.9); POTASSIUM 3.4 mmol/L (3.5-5.1)
[2024-05-14] MEDS ORDERED: JEVITY 1.2 CAL 1,000 ML BOTTLE GT PRN (10:00)
[2024-05-14] MEDS: POTASSIUM CHLORIDE 20 MEQ TAB.PRT.SR PO SCH (10:20)
[2024-05-14] MEDS: MAGNESIUM OXIDE 400 MG TABLET PO ONE (10:20)
[2024-05-14] MEDS ORDERED: JEVITY 1.2 CAL 1,000 ML BOTTLE GT SCH ×2 (10:30)
[2024-05-14] MEDS: JEVITY 1.2 CAL 1,000 ML BOTTLE GT SCH (11:36)
[2024-05-14] MEDS: ALBUTEROL FS 2.5 MG/3 ML VIAL.NEB NEB SCH (13:30)
[2024-05-14] MEDS: ACETYLCYSTEINE 10% SOLN 400 MG/4 ML VIAL NEB SCH (13:30)
[2024-05-14] MEDS: IPRATROPIUM NEB FS 0.5 MG/2.5 ML AMPUL.NEB NEB SCH (13:30)
[2024-05-15] VITALS (14 sets, daily range): BP systolic 103–120; BP diastolic 52–67; TEMP 97.5–98.5; O2SAT 86–99
[2024-05-15 07:02] LABS: BASOPHILS % (AUTO) 0.1 % (0.0-2.0); EOSINOPHILS # (AUTO) 0.3 K/uL (0.0-0.7); EOSINOPHILS % (AUTO) 5.3 % (0.0-6.0); HEMATOCRIT 25 % (39-51); LYMPHOCYTES # (AUTO) 0.9 K/uL (0.8-4.8); LYMPHOCYTES % (AUTO) 14.9 % (20.0-44.0); MEAN CORPUSCULAR HEMOGLOBIN 36 PG (26.0-33.0); MEAN CORPUSCULAR HGB CONC 36 g/dl (31.0-36.0); MEAN CORPUSCULAR VOLUME 100 fL (80-96); MONOCYTES # (AUTO) 0.6 K/uL (0.1-1.30); MONOCYTES % (AUTO) 10.5 % (2.0-12.0); NEUTROPHILS # (AUTO) 4.2 K/uL (1.8-8.9); NEUTROPHILS % (AUTO) 69.2 % (43.0-81.0); PLATELET COUNT (AUTO) 133 K/uL (150-450); RED BLOOD CELL COUNT(AUTO) 2.47 MIL/uL (4.5-6.0); RED CELL DISTRIBUTION WIDTH 17.9 % (11.5-15.0)
[2024-05-15 07:22] LABS: CALCIUM, SERUM 8.4 mg/dL (8.5-10.1); CREATININE 0.8 mg/dL (0.6-1.3); MAGNESIUM 1.7 mg/dL (1.8-2.4); PHOSPHORUS 2.9 mg/dL (2.5-4.9); POTASSIUM 3.4 mmol/L (3.5-5.1)
[2024-05-15 10:07] LABS: AFP, TUMOR MARKER 4.7 ng/mL (0.0-6.4)
[2024-05-15] MEDS: POTASSIUM CHLORIDE 20 MEQ POWDER PACKET NG SCH (11:39)
[2024-05-15] MEDS: MAGNESIUM OXIDE 400 MG TABLET GT ONE (11:40)
[2024-05-15] MEDS ORDERED: GADOTERATE MEGLUMINE 10 MMOL/20 ML VIAL IV ONE (14:06)
[2024-05-15] MEDS ORDERED: JEVITY 1.2 CAL 1,000 ML BOTTLE GT SCH (18:00)
[2024-05-15] MEDS: JEVITY 1.2 CAL 1,000 ML BOTTLE GT SCH (19:01)
[2024-05-15 21:10] LABS: BILIRUBIN,DIRECT 0.5 mg/dL (0.0-0.2); BILIRUBIN,TOTAL 2.7 mg/dL (0.2-1.0)
[2024-05-16] VITALS (14 sets, daily range): BP systolic 95–124; BP diastolic 60–67; TEMP 97.5–98.6; O2SAT 90–100
[2024-05-16 08:37] LABS: BASOPHILS % (AUTO) 0.1 % (0.0-2.0); EOSINOPHILS # (AUTO) 0.2 K/uL (0.0-0.7); EOSINOPHILS % (AUTO) 0.8 % (0.0-6.0); HEMATOCRIT 29 % (39-51); HEMOGLOBIN 10.1 g/dL (13.5-17.5); LYMPHOCYTES # (AUTO) 0.5 K/uL (0.8-4.8); LYMPHOCYTES % (AUTO) 2.7 % (20.0-44.0); MEAN CORPUSCULAR HEMOGLOBIN 35 PG (26.0-33.0); MEAN CORPUSCULAR HGB CONC 35 g/dl (31.0-36.0); MEAN CORPUSCULAR VOLUME 101 fL (80-96); MONOCYTES # (AUTO) 0.4 K/uL (0.1-1.30); MONOCYTES % (AUTO) 2.1 % (2.0-12.0); NEUTROPHILS # (AUTO) 18.1 K/uL (1.8-8.9); NEUTROPHILS % (AUTO) 94.3 % (43.0-81.0); PLATELET COUNT (AUTO) 164 K/uL (150-450); RED BLOOD CELL COUNT(AUTO) 2.85 MIL/uL (4.5-6.0); WHITE BLOOD COUNT (AUTO) 19.2 K/uL (4.3-11.0)
[2024-05-16] MEDS: PANTOPRAZOLE 40 MG/PACK PACK GT SCH (08:59)
[2024-05-16 10:30] LABS: BILIRUBIN,DIRECT 0.7 mg/dL (0.0-0.2); BILIRUBIN,TOTAL 3.4 mg/dL (0.2-1.0); CALCIUM, SERUM 8.8 mg/dL (8.5-10.1); MAGNESIUM 1.8 mg/dL (1.8-2.4); PHOSPHORUS 2.3 mg/dL (2.5-4.9); POTASSIUM 3.4 mmol/L (3.5-5.1)
[2024-05-16 12:34] LABS: BAND % (MANUAL) 1 % (0.0-5.0); EOSINOPHILS % (MANUAL) 1 % (0-4); LYMPHOCYTES % (MANUAL) 2 % (16-48); MONOCYTES % (MANUAL) 3 % (0-11.0); NEUTROPHILS % (MANUAL) 93 (42-76)
[2024-05-16 12:35] LABS: ANISOCYTOSIS 1+; PLATELET ESTIMATE ADEQUATE; TOXIC GRANULATION 1+
[2024-05-16] MEDS: NEUTRA PHOS 1 POWD.PACKET NG ONE (15:38)
[2024-05-16] MEDS: POTASSIUM CHLORIDE 20 MEQ TAB.PRT.SR PO ONE (16:14)
[2024-05-16] MEDS: ACETAMINOPHEN 325 MG TABLET PO PRN (17:59)
[2024-05-17] VITALS (14 sets, daily range): BP systolic 98–117; BP diastolic 50–72; TEMP 97.6–98.4; O2SAT 97–100
[2024-05-17 08:41] LABS: BASOPHILS % (AUTO) 0.1 % (0.0-2.0); EOSINOPHILS # (AUTO) 0.2 K/uL (0.0-0.7); EOSINOPHILS % (AUTO) 1.8 % (0.0-6.0); HEMATOCRIT 25 % (39-51); HEMOGLOBIN 8.8 g/dL (13.5-17.5); LYMPHOCYTES # (AUTO) 0.9 K/uL (0.8-4.8); LYMPHOCYTES % (AUTO) 7.1 % (20.0-44.0); MEAN CORPUSCULAR HEMOGLOBIN 36 PG (26.0-33.0); MEAN CORPUSCULAR HGB CONC 35 g/dl (31.0-36.0); MEAN CORPUSCULAR VOLUME 103 fL (80-96); MONOCYTES # (AUTO) 0.5 K/uL (0.1-1.30); MONOCYTES % (AUTO) 4.1 % (2.0-12.0); NEUTROPHILS % (AUTO) 86.9 % (43.0-81.0); PLATELET COUNT (AUTO) 117 K/uL (150-450); RED BLOOD CELL COUNT(AUTO) 2.47 MIL/uL (4.5-6.0); RED CELL DISTRIBUTION WIDTH 18.6 % (11.5-15.0); WHITE BLOOD COUNT (AUTO) 12.6 K/uL (4.3-11.0)
[2024-05-17 09:14] LABS: ALBUMIN 1.9 g/dL (3.4-5.0); CALCIUM, SERUM 8.2 mg/dL (8.5-10.1); POTASSIUM 3.6 mmol/L (3.5-5.1); TOTAL PROTEIN, SERUM 5.8 g/dL (6.4-8.2)
[2024-05-18] VITALS (12 sets, daily range): BP systolic 97–109; BP diastolic 28–58; TEMP 97.5–98.7; O2SAT 94–100
[2024-05-18 07:22] LABS: INR 1.46 (0.91-1.10); PROTHROMBIN TIME 15.1 SECS (9.2-11.1)
[2024-05-18 07:25] LABS: BASOPHILS % (AUTO) 0.1 % (0.0-2.0); EOSINOPHILS # (AUTO) 0.4 K/uL (0.0-0.7); EOSINOPHILS % (AUTO) 3.3 % (0.0-6.0); HEMATOCRIT 26 % (39-51); HEMOGLOBIN 8.9 g/dL (13.5-17.5); LYMPHOCYTES # (AUTO) 0.8 K/uL (0.8-4.8); LYMPHOCYTES % (AUTO) 6.7 % (20.0-44.0); MEAN CORPUSCULAR HEMOGLOBIN 36 PG (26.0-33.0); MEAN CORPUSCULAR HGB CONC 35 g/dl (31.0-36.0); MEAN CORPUSCULAR VOLUME 104 fL (80-96); MONOCYTES # (AUTO) 0.5 K/uL (0.1-1.30); NEUTROPHILS # (AUTO) 10.4 K/uL (1.8-8.9); NEUTROPHILS % (AUTO) 85.9 % (43.0-81.0); PLATELET COUNT (AUTO) 100 K/uL (150-450); RED BLOOD CELL COUNT(AUTO) 2.45 MIL/uL (4.5-6.0); RED CELL DISTRIBUTION WIDTH 18.9 % (11.5-15.0); WHITE BLOOD COUNT (AUTO) 12.1 K/uL (4.3-11.0)
[2024-05-18 07:38] LABS: ALBUMIN 1.9 g/dL (3.4-5.0); BILIRUBIN,TOTAL 1.6 mg/dL (0.2-1.0); CALCIUM, SERUM 8.1 mg/dL (8.5-10.1); CREATININE 0.9 mg/dL (0.6-1.3); MAGNESIUM 1.9 mg/dL (1.8-2.4); PHOSPHORUS 3.3 mg/dL (2.5-4.9); POTASSIUM 3.9 mmol/L (3.5-5.1); TOTAL PROTEIN, SERUM 5.7 g/dL (6.4-8.2)
[2024-05-18] MEDS ORDERED: IV NS 0.9% 250 ML IV ONE (17:18)
[2024-05-18] MEDS ORDERED: IOHEXOL-350 100 ML VIAL IV ONE (17:18)
[2024-05-19] VITALS (15 sets, daily range): BP systolic 96–118; BP diastolic 54–90; TEMP 97.3–98.8; O2SAT 92–99
[2024-05-19 06:42] LABS: BASOPHILS % (AUTO) 0.1 % (0.0-2.0); EOSINOPHILS # (AUTO) 0.5 K/uL (0.0-0.7); EOSINOPHILS % (AUTO) 5.3 % (0.0-6.0); HEMATOCRIT 24 % (39-51); HEMOGLOBIN 8.3 g/dL (13.5-17.5); LYMPHOCYTES # (AUTO) 0.8 K/uL (0.8-4.8); LYMPHOCYTES % (AUTO) 7.7 % (20.0-44.0); MEAN CORPUSCULAR HEMOGLOBIN 37 PG (26.0-33.0); MEAN CORPUSCULAR HGB CONC 36 g/dl (31.0-36.0); MEAN CORPUSCULAR VOLUME 104 fL (80-96); MONOCYTES # (AUTO) 0.7 K/uL (0.1-1.30); MONOCYTES % (AUTO) 6.7 % (2.0-12.0); NEUTROPHILS # (AUTO) 8.2 K/uL (1.8-8.9); NEUTROPHILS % (AUTO) 80.2 % (43.0-81.0); PLATELET COUNT (AUTO) 102 K/uL (150-450); RED BLOOD CELL COUNT(AUTO) 2.26 MIL/uL (4.5-6.0); RED CELL DISTRIBUTION WIDTH 18.8 % (11.5-15.0); WHITE BLOOD COUNT (AUTO) 10.2 K/uL (4.3-11.0)
[2024-05-19 07:12] LABS: ALBUMIN 1.6 g/dL (3.4-5.0); BILIRUBIN,TOTAL 1.4 mg/dL (0.2-1.0); CREATININE 0.8 mg/dL (0.6-1.3); MAGNESIUM 1.8 mg/dL (1.8-2.4); PHOSPHORUS 3.3 mg/dL (2.5-4.9); TOTAL PROTEIN, SERUM 5.4 g/dL (6.4-8.2)
[2024-05-20] VITALS (7 sets, daily range): BP systolic 97–106; BP diastolic 51–62; TEMP 97.3–98.6; O2SAT 86–100
[2024-05-20] MEDS: PROSOURCE / PROSTAT (PYXIS) 30 ML UDC GT SCH (12:45)
== END 2024-05-20 15:43 | DRG 421 ==
LOC: ER 13:12 → TELE1 17:48 → MEDSG1 17:52 → TELE1 05-13 18:16 → MEDSG1 05-15 09:42
PROVIDERS: ADMIT Nurse Practitioner Acute Care; ATTEND Nurse Practitioner Family
PROC: 0DH63UZ Insertion of Feeding Device into Stomach, Percutaneous Approach (ICD-10-PCS; principal; 2024-05-13)
DX: R62.7 Adult failure to thrive (principal); G93.41 Metabolic encephalopathy; L89.624 Pressure ulcer of left heel, stage 4; I21.A1 Myocardial infarction type 2; E44.0 Moderate protein-calorie malnutrition; K76.82 Hepatic encephalopathy; E72.20 Disorder of urea cycle metabolism, unspecified; D68.9 Coagulation defect, unspecified; D69.6 Thrombocytopenia, unspecified; K72.10 Chronic hepatic failure without coma; E87.20 Acidosis, unspecified; D63.8 Anemia in other chronic diseases classified elsewhere; E88.09 Other disorders of plasma-protein metabolism, not elsewhere classified; N40.0 Benign prostatic hyperplasia without lower urinary tract symptoms; K25.9 Gastric ulcer, unspecified as acute or chronic, without hemorrhage or perforation; K29.70 Gastritis, unspecified, without bleeding; R13.10 Dysphagia, unspecified; Z79.899 Other long term (current) drug therapy; Z78.1 Physical restraint status; E03.9 Hypothyroidism, unspecified; D53.9 Nutritional anemia, unspecified; D72.829 Elevated white blood cell count, unspecified; I73.9 Peripheral vascular disease, unspecified; K74.60 Unspecified cirrhosis of liver; Z86.73 Personal history of transient ischemic attack (TIA), and cerebral infarction without residual deficits; M62.472 Contracture of muscle, left ankle and foot; M62.471 Contracture of muscle, right ankle and foot; I10 Essential (primary) hypertension; K76.9 Liver disease, unspecified
CPT/HCPCS: 31720; 36415; 43246; 70450-TC; 71045-TC; 73630-TC; 74178; 74183; 80048-TC; 80053-TC; 80076-TC; 82105; 82140-TC; 82247-TC; 82248-TC; 82378; 82728-TC; 82962-TC; 83540-TC; 83605-TC; 83735-TC; 84100-TC; 84484-TC; 85025-TC; 85610-TC; 85730-TC; 86301; 86850-TC; 87040-TC; 87081-TC; 92526; 92611-TC; 94667-TC; 94760-TC; 94761-TC; 94762-TC; 94799-TC; 97110-TC; 97112-TC; 97116-TC; 97530-TC; 97535-TC; A4223; A6403; A9575; G0378; J0690; J2405; J2470; J2704; J3430; J3475; J3480; J7030; J7050; Q9967

== ENCOUNTER 2024-06-16 20:07 | Inpatient (IN) | payer MEDICARE, OTHER ==
[~2024-06-16] VITALS: Ht 175.3 cm; Wt 57.6 kg
[~2024-06-16 20:07] MED LIST changes: -MERO500P IV
[2024-06-16] MEDS: VANCOMYCIN 1 GM in IV D5W 250 ML IV ONE (20:30)
[2024-06-16] MEDS: IV NS 0.9% 1,000 ML BAG IV ONE (20:34)
[2024-06-16] MEDS ORDERED: CEFEPIME 1 GM VIAL ONE (20:36)
[2024-06-16] MEDS ORDERED: VANCOMYCIN 1 GM /D5W 250 ML PB IV ONE (20:36)
[2024-06-16 20:38] LABS: BASOPHILS % (AUTO) 0.3 % (0.0-2.0); EOSINOPHILS # (AUTO) 0.8 K/uL (0.0-0.7); EOSINOPHILS % (AUTO) 9.6 % (0.0-6.0); HEMATOCRIT 33 % (39-51); HEMOGLOBIN 11.4 g/dL (13.5-17.5); LYMPHOCYTES # (AUTO) 1.4 K/uL (0.8-4.8); LYMPHOCYTES % (AUTO) 17.4 % (20.0-44.0); MEAN CORPUSCULAR HEMOGLOBIN 36 PG (26.0-33.0); MEAN CORPUSCULAR HGB CONC 35 g/dl (31.0-36.0); MEAN CORPUSCULAR VOLUME 103 fL (80-96); MONOCYTES # (AUTO) 0.8 K/uL (0.1-1.30); MONOCYTES % (AUTO) 9.6 % (2.0-12.0); NEUTROPHILS # (AUTO) 5.2 K/uL (1.8-8.9); NEUTROPHILS % (AUTO) 63.1 % (43.0-81.0); PLATELET COUNT (AUTO) 111 K/uL (150-450); RED BLOOD CELL COUNT(AUTO) 3.17 MIL/uL (4.5-6.0); WHITE BLOOD COUNT (AUTO) 8.2 K/uL (4.3-11.0)
[2024-06-16 20:53] LABS: INR 1.41 (0.91-1.10); PARTIAL THROMBOPLASTIN TIME 28.8 SEC (24.3-34.3); PROTHROMBIN TIME 14.3 SECS (9.2-11.1)
[2024-06-16 20:55] LABS: ALANINE AMINOTRANSFERASE 26 U/L (12-78); ALBUMIN 2.3 g/dL (3.4-5.0); ALKALINE PHOSPHATASE 193 U/L (46-116); ASPARTATE AMINOTRANSFERASE 36 U/L (15-37); BILIRUBIN,DIRECT 0.5 mg/dL (0.0-0.2); BILIRUBIN,TOTAL 1.7 mg/dL (0.2-1.0); CALCIUM, SERUM 8.8 mg/dL (8.5-10.1); CARBON DIOXIDE 23 mmol/L (21-32); CHLORIDE 109 mmol/L (98-107); CREATININE 1.1 mg/dL (0.6-1.3); GLUCOSE 97 mg/dL (74-106); SODIUM SERUM 139 mmol/L (136-145); TOTAL PROTEIN, SERUM 6.3 g/dL (6.4-8.2); UREA NITROGEN, BLOOD 15 mg/dL (7-18)
[2024-06-16] MEDS: CEFEPIME 1 GM in IV D5W 50 ML IV ONE (21:05)
[2024-06-16 22:49] LABS: APPEARANCE,URINE CLEAR (CLEAR); BILIRUBIN,URINE NEGATIVE (NEGATIVE); BLOOD, URINE NEGATIVE Ery/uL (NEGATIVE); COLOR,URINE YELLOW (YELLOW); KETONES,URINE TRACE mg/dL (NEGATIVE); LEUKOCYTE ESTERASE ,URINE NEGATIVE (NEGATIVE); NITRITE, URINE NEGATIVE (NEGATIVE); PH,URINE 6.5 (5.0-8.0); PROTEIN,URINE NEGATIVE (NEGATIVE); UGLUCOSE NEGATIVE (NEGATIVE)
[2024-06-16 22:55] LABS: LYMPHOCYTES % (MANUAL) 16 % (16-48); NEUTROPHILS % (MANUAL) 66 (42-76)
[2024-06-16 22:56] LABS: BASOPHILS % (MANUAL) 0 % (0.0-2.0); EOSINOPHILS % (MANUAL) 10 % (0-4); MONOCYTES % (MANUAL) 8 % (0-11.0); PLATELET ESTIMATE DECREASED
[2024-06-16 23:03] LABS: BACTERIA,URINE Rare /HPF (None Seen); MUCUS,URINE Moderate /LPF (None Seen); SQUAMOUS EPITHELIAL CELL,UR None Seen /HPF (None Seen)
[2024-06-16 23:04] LABS: ADD URINE CULTURE NO; RBC,URINE 0-2 /HPF (0-2); WBC,URINE 0-2 /HPF (0-3)
[2024-06-17] MEDS ORDERED: ONDANSETRON HCL/PF 4 MG/2 ML VIAL IVP PRN (00:30)
[2024-06-17] MEDS ORDERED: LACTULOSE 10 G/15 ML UDC (PYXIS) PO PRN (00:30)
[2024-06-17] MEDS ORDERED: Z GUARD REMEDY 4 OZ OINT TP PRN (00:30)
[2024-06-17] MEDS ORDERED: MAG HYDROX/AL HYDROX/SIMETH 30 ML UDC PO PRN (00:30)
[2024-06-17] MEDS: ENOXAPARIN SODIUM 40 MG/0.4 ML DISP.SYRIN SQ SCH (00:30)
[2024-06-17] MEDS ORDERED: MAGNESIUM HYDROXIDE 30 ML UDC PO PRN (00:30)
[2024-06-17 01:35] VITALS: BP 111/54; TEMP 97.7; O2SAT 100
[2024-06-17] MEDS ORDERED: LACT10SO58 GT (02:29)
[2024-06-17] MEDS ORDERED: IPRA0.2S49 NEB (02:29)
[2024-06-17] MEDS ORDERED: ALBU2.5V13 IH (02:29)
[2024-06-17] MEDS ORDERED: ZINC50TA69 GT (02:29)
[2024-06-17] MEDS ORDERED: MAGN400O21 GT (02:29)
[2024-06-17] MEDS ORDERED: SENN-18 GT (02:29)
[2024-06-17] MEDS ORDERED: AMIN30LI66 GT (02:29)
[2024-06-17] MEDS ORDERED: PANT40TA2 GT (02:29)
[2024-06-17] MEDS ORDERED: GLUC1KIT IM (02:29)
[2024-06-17] MEDS ORDERED: DOXA4TAB19 GT (02:29)
[2024-06-17] MEDS ORDERED: ACET325T53 GT (02:29)
[2024-06-17] MEDS ORDERED: DOCU-141 GT (02:29)
[2024-06-17] MEDS ORDERED: CRAN400C GT (02:29)
[2024-06-17 07:30] VITALS: BP 118/62; TEMP 98.6; O2SAT 100
[2024-06-17] MEDS: CEFEPIME 1 GM in IV D5W 50 ML IV SCH (09:18)
[2024-06-17] MEDS: PANTOPRAZOLE 40 MG VIAL IV SCH (09:25)
[2024-06-17] MEDS: MEGESTROL ACETATE SUSP 400 MG/10 ML UDC PO SCH (09:25)
[2024-06-17] MEDS: TAMSULOSIN 0.4 MG CAP.SR.24H PO SCH (09:26)
[2024-06-17] MEDS: RIFAXIMIN 550 MG TABLET PO SCH (09:27)
[2024-06-17] MEDS: VANCOMYCIN 500 MG in IV D5W 100ml IV SCH (09:48)
[2024-06-17] MEDS ORDERED: LACT-209 GT (11:27)
[2024-06-17] MEDS ORDERED: ACET-637 PO (11:27)
[2024-06-17] MEDS ORDERED: IPRA3AMP23 NEB (11:27)
[2024-06-17] MEDS ORDERED: CRAN425C6 GT (11:27)
[2024-06-17] MEDS ORDERED: HONE44PA TP (11:27)
[2024-06-17] MEDS ORDERED: BISA10SU11 RC (11:27)
[2024-06-17] MEDS ORDERED: MAGN400O6 GT (11:27)
[2024-06-17] MEDS ORDERED: POVI1MED TP (11:27)
[2024-06-17 16:00] VITALS: BP 105/58; TEMP 97.7; O2SAT 100
[2024-06-17] MEDS: LACTULOSE 10 G/15 ML UDC (PYXIS) PO SCH (16:27)
[2024-06-17 17:09] LABS: BASOPHILS % (AUTO) 0.3 % (0.0-2.0); EOSINOPHILS # (AUTO) 1.2 K/uL (0.0-0.7); HEMATOCRIT 29 % (39-51); HEMOGLOBIN 10.4 g/dL (13.5-17.5); LYMPHOCYTES # (AUTO) 0.9 K/uL (0.8-4.8); LYMPHOCYTES % (AUTO) 21.3 % (20.0-44.0); MEAN CORPUSCULAR HEMOGLOBIN 37 PG (26.0-33.0); MEAN CORPUSCULAR HGB CONC 36 g/dl (31.0-36.0); MEAN CORPUSCULAR VOLUME 101 fL (80-96); MONOCYTES # (AUTO) 0.3 K/uL (0.1-1.30); MONOCYTES % (AUTO) 8.2 % (2.0-12.0); NEUTROPHILS # (AUTO) 1.8 K/uL (1.8-8.9); NEUTROPHILS % (AUTO) 42.1 % (43.0-81.0); PLATELET COUNT (AUTO) 80 K/uL (150-450); RED BLOOD CELL COUNT(AUTO) 2.84 MIL/uL (4.5-6.0); RED CELL DISTRIBUTION WIDTH 14.9 % (11.5-15.0); WHITE BLOOD COUNT (AUTO) 4.2 K/uL (4.3-11.0)
[2024-06-17 17:17] LABS: CREATININE 0.7 mg/dL (0.6-1.3); POTASSIUM 4.1 mmol/L (3.5-5.1)
[2024-06-17 17:19] LABS: EOSINOPHILS % (AUTO) 28.1 % (0.0-6.0)
[2024-06-17 18:00] LABS: EOSINOPHILS % (MANUAL) 25 % (0-4); LYMPHOCYTES % (MANUAL) 19 % (16-48); MONOCYTES % (MANUAL) 7 % (0-11.0); NEUTROPHILS % (MANUAL) 49 (42-76)
[2024-06-17 18:01] LABS: ANISOCYTOSIS 1+; PLATELET ESTIMATE DECREASED
[2024-06-17] MEDS: THERAHONEY GEL 1.5 OZ TUBE TP SCH (18:24)
[2024-06-17 20:00] VITALS: BP 129/69; TEMP 97.3; O2SAT 96
[2024-06-17 22:00] VITALS: BP 129/69; TEMP 97.3; O2SAT 96
[2024-06-18 05:00] VITALS: BP 129/69; TEMP 97.3; O2SAT 96
[2024-06-18] MEDS: PANTOPRAZOLE 40 MG TABLET.DR PO SCH (09:51)
[2024-06-18 10:00] VITALS: BP 106/52; TEMP 97.8; O2SAT 100
[2024-06-18] MEDS ORDERED: ENOXAPARIN SODIUM 40 MG/0.4 ML DISP.SYRIN SQ SCH ×2 (12:26→12:28)
[2024-06-18 13:00] VITALS: BP 106/52; TEMP 97.8; O2SAT 100
[2024-06-18 14:19] LABS: BASOPHILS % (AUTO) 0.2 % (0.0-2.0); EOSINOPHILS # (AUTO) 1.6 K/uL (0.0-0.7); HEMATOCRIT 31 % (39-51); HEMOGLOBIN 10.8 g/dL (13.5-17.5); LYMPHOCYTES # (AUTO) 0.8 K/uL (0.8-4.8); LYMPHOCYTES % (AUTO) 14.3 % (20.0-44.0); MEAN CORPUSCULAR HEMOGLOBIN 36 PG (26.0-33.0); MEAN CORPUSCULAR HGB CONC 35 g/dl (31.0-36.0); MEAN CORPUSCULAR VOLUME 102 fL (80-96); MONOCYTES # (AUTO) 0.5 K/uL (0.1-1.30); MONOCYTES % (AUTO) 8.9 % (2.0-12.0); NEUTROPHILS # (AUTO) 2.9 K/uL (1.8-8.9); PLATELET COUNT (AUTO) 86 K/uL (150-450); RED BLOOD CELL COUNT(AUTO) 2.98 MIL/uL (4.5-6.0); RED CELL DISTRIBUTION WIDTH 14.9 % (11.5-15.0); WHITE BLOOD COUNT (AUTO) 5.9 K/uL (4.3-11.0)
[2024-06-18 14:42] LABS: EOSINOPHILS % (AUTO) 27.6 % (0.0-6.0)
[2024-06-18] MEDS: JEVITY 1.2 CAL 1,000 ML BOTTLE GT PRN (17:26)
[2024-06-18 17:29] LABS: EOSINOPHILS % (MANUAL) 29 % (0-4); LYMPHOCYTES % (MANUAL) 13 % (16-48); MONOCYTES % (MANUAL) 7 % (0-11.0); NEUTROPHILS % (MANUAL) 51 (42-76)
[2024-06-18 17:30] LABS: ANISOCYTOSIS 1+; PLATELET ESTIMATE DECREASED
[2024-06-18 19:12] LABS: ALBUMIN 2.5 g/dL (3.4-5.0); BILIRUBIN,DIRECT 0.6 mg/dL (0.0-0.2); BILIRUBIN,TOTAL 1.8 mg/dL (0.2-1.0); CALCIUM, SERUM 8.1 mg/dL (8.5-10.1); CREATININE 0.7 mg/dL (0.6-1.3); MAGNESIUM 1.8 mg/dL (1.8-2.4); PHOSPHORUS 2.9 mg/dL (2.5-4.9); POTASSIUM 3.5 mmol/L (3.5-5.1); TOTAL PROTEIN, SERUM 6.8 g/dL (6.4-8.2)
[2024-06-18 20:00] VITALS: BP 127/61; TEMP 97.2; O2SAT 100
[2024-06-18] MEDS: VANCOMYCIN 750 MG in IV D5W 250 ML IV SCH (20:08)
[2024-06-18 21:00] VITALS: BP 127/61; TEMP 97.2; O2SAT 100
[2024-06-19 04:00] VITALS: BP 117/80; TEMP 97.5; O2SAT 100
[2024-06-19 07:17] LABS: BASOPHILS % (AUTO) 0.3 % (0.0-2.0); EOSINOPHILS # (AUTO) 1.6 K/uL (0.0-0.7); HEMATOCRIT 33 % (39-51); HEMOGLOBIN 11.4 g/dL (13.5-17.5); LYMPHOCYTES # (AUTO) 0.8 K/uL (0.8-4.8); LYMPHOCYTES % (AUTO) 13.3 % (20.0-44.0); MEAN CORPUSCULAR HEMOGLOBIN 36 PG (26.0-33.0); MEAN CORPUSCULAR HGB CONC 35 g/dl (31.0-36.0); MEAN CORPUSCULAR VOLUME 102 fL (80-96); MONOCYTES # (AUTO) 0.5 K/uL (0.1-1.30); MONOCYTES % (AUTO) 8.8 % (2.0-12.0); NEUTROPHILS # (AUTO) 3.1 K/uL (1.8-8.9); NEUTROPHILS % (AUTO) 51.6 % (43.0-81.0); PLATELET COUNT (AUTO) 85 K/uL (150-450); RED BLOOD CELL COUNT(AUTO) 3.19 MIL/uL (4.5-6.0); RED CELL DISTRIBUTION WIDTH 14.9 % (11.5-15.0)
[2024-06-19 07:40] LABS: ALBUMIN 2.3 g/dL (3.4-5.0); BILIRUBIN,TOTAL 1.7 mg/dL (0.2-1.0); CALCIUM, SERUM 8.3 mg/dL (8.5-10.1); CREATININE 0.6 mg/dL (0.6-1.3); POTASSIUM 3.7 mmol/L (3.5-5.1); TOTAL PROTEIN, SERUM 6.2 g/dL (6.4-8.2)
[2024-06-19 07:53] LABS: PHOSPHORUS 3.2 mg/dL (2.5-4.9)
[2024-06-19 08:00] VITALS: BP 123/71; TEMP 97.7; O2SAT 100
[2024-06-19 09:57] LABS: EOSINOPHILS % (MANUAL) 23 % (0-4); LYMPHOCYTES % (MANUAL) 10 % (16-48); MONOCYTES % (MANUAL) 9 % (0-11.0)
[2024-06-19 10:11] LABS: ANISOCYTOSIS 1+; NEUTROPHILS % (MANUAL) 58 (42-76); PLATELET ESTIMATE DECREASED
[2024-06-19 16:00] VITALS: BP 108/69; TEMP 98.1; O2SAT 100
[2024-06-19] MEDS ORDERED: JEVITY 1.2 CAL 1,000 ML BOTTLE GT PRN (18:30)
[2024-06-19 20:00] VITALS: BP 118/66; TEMP 97.7; O2SAT 100
[2024-06-20 04:00] VITALS: BP 114/69; TEMP 97.9; O2SAT 100
[2024-06-20 07:03] LABS: CREATININE 0.5 mg/dL (0.6-1.3); POTASSIUM 4.4 mmol/L (3.5-5.1); TOTAL PROTEIN, SERUM 6.5 g/dL (6.4-8.2)
[2024-06-20 07:11] LABS: CALCIUM, SERUM 8.2 mg/dL (8.5-10.1)
[2024-06-20 07:16] LABS: BASOPHILS % (AUTO) 0.3 % (0.0-2.0); EOSINOPHILS # (AUTO) 1.3 K/uL (0.0-0.7); EOSINOPHILS % (AUTO) 18.2 % (0.0-6.0); HEMATOCRIT 32 % (39-51); HEMOGLOBIN 11.3 g/dL (13.5-17.5); LYMPHOCYTES # (AUTO) 1.2 K/uL (0.8-4.8); LYMPHOCYTES % (AUTO) 17.2 % (20.0-44.0); MEAN CORPUSCULAR HEMOGLOBIN 36 PG (26.0-33.0); MEAN CORPUSCULAR HGB CONC 35 g/dl (31.0-36.0); MEAN CORPUSCULAR VOLUME 102 fL (80-96); MONOCYTES # (AUTO) 0.8 K/uL (0.1-1.30); NEUTROPHILS # (AUTO) 3.8 K/uL (1.8-8.9); NEUTROPHILS % (AUTO) 53.3 % (43.0-81.0); PLATELET COUNT (AUTO) 90 K/uL (150-450); RED BLOOD CELL COUNT(AUTO) 3.15 MIL/uL (4.5-6.0); RED CELL DISTRIBUTION WIDTH 14.9 % (11.5-15.0); WHITE BLOOD COUNT (AUTO) 7.1 K/uL (4.3-11.0)
[2024-06-20 08:00] VITALS: BP 117/50; TEMP 98.3; O2SAT 100
[2024-06-20] MEDS ORDERED: JEVITY 1.2 CAL 1,000 ML BOTTLE GT SCH (11:00)
[2024-06-20 15:22] LABS: EOSINOPHILS % (MANUAL) 25 % (0-4); LYMPHOCYTES % (MANUAL) 16 % (16-48); MONOCYTES % (MANUAL) 9 % (0-11.0); NEUTROPHILS % (MANUAL) 50 (42-76); PLATELET ESTIMATE DECREASED
[2024-06-20 15:23] LABS: ANISOCYTOSIS 1+
== END 2024-06-20 15:09 | DRG 602 ==
LOC: ER 20:09 → MEDSG1 06-17 00:15
PROVIDERS: ATTEND Nurse Practitioner Acute Care
DX: L03.115 Cellulitis of right lower limb (principal); G92.8 Other toxic encephalopathy; L89.624 Pressure ulcer of left heel, stage 4; E72.20 Disorder of urea cycle metabolism, unspecified; E87.20 Acidosis, unspecified; L03.116 Cellulitis of left lower limb; I87.2 Venous insufficiency (chronic) (peripheral); K74.60 Unspecified cirrhosis of liver; I73.9 Peripheral vascular disease, unspecified; D50.9 Iron deficiency anemia, unspecified; I10 Essential (primary) hypertension; R13.10 Dysphagia, unspecified; Z86.73 Personal history of transient ischemic attack (TIA), and cerebral infarction without residual deficits; E80.6 Other disorders of bilirubin metabolism; Z85.05 Personal history of malignant neoplasm of liver; N40.0 Benign prostatic hyperplasia without lower urinary tract symptoms; M24.571 Contracture, right ankle; M24.572 Contracture, left ankle; R53.1 Weakness
CPT/HCPCS: 36415; 71045-TC; 76700-TC; 80048-TC; 80053-TC; 80076-TC; 80202-TC; 81001; 82140-TC; 82962-TC; 83605-TC; 83735-TC; 84100-TC; 85025-TC; 85730-TC; 87040-TC; 87081-TC; 87086-TC; 97110-TC; 97116-TC; 97530-TC; G0378; J0692; J1650; J2470; J3370; J3371; J7030; J7050; J7060

== ENCOUNTER 2024-08-17 23:16 | Inpatient (IN) | payer MEDICARE, OTHER ==
[~2024-08-17] VITALS: Ht 165.1 cm; Wt 69.9 kg
[~2024-08-17 23:16] MED LIST changes: +ACET-637 GT; +ACET325T53 GT; +AMIN30LI66 GT; +BISA10SU11 RC; +CRAN425C6 GT; +DOCU-141 GT; +DOXA4TAB19 GT; +GLUC1KIT IJ; +HONE44PA TP; +IPRA3AMP23 NEB; +LACT-209 GT; +LACT10SO58 GT; -LACT10SO58 PO; +MAGN400O6 GT; -MEGE400O6 PO; +PANT40TA2 GT; +POVI1MED TP; +SENN-18 GT; -TAMS-12 PO; +ZINC50TA69 GT
[2024-08-18 00:29] LABS: BASOPHILS # (AUTO) 0.1 K/uL (0.0-0.2); BASOPHILS % (AUTO) 0.3 % (0.0-2.0); HEMATOCRIT 33 % (39-51); HEMOGLOBIN 11.1 g/dL (13.5-17.5); LYMPHOCYTES # (AUTO) 0.9 K/uL (0.8-4.8); LYMPHOCYTES % (AUTO) 3.1 % (20.0-44.0); MEAN CORPUSCULAR HEMOGLOBIN 35 PG (26.0-33.0); MEAN CORPUSCULAR HGB CONC 34 g/dl (31.0-36.0); MEAN CORPUSCULAR VOLUME 103 fL (80-96); MONOCYTES # (AUTO) 1.5 K/uL (0.1-1.30); NEUTROPHILS # (AUTO) 24.5 K/uL (1.8-8.9); NEUTROPHILS % (AUTO) 84.6 % (43.0-81.0); PLATELET COUNT (AUTO) 287 K/uL (150-450); RED BLOOD CELL COUNT(AUTO) 3.14 MIL/uL (4.5-6.0); RED CELL DISTRIBUTION WIDTH 20.6 % (11.5-15.0)
[2024-08-18 00:41] LABS: APPEARANCE,URINE CLEAR (CLEAR); BILIRUBIN,URINE NEGATIVE (NEGATIVE); BLOOD, URINE 3+ Ery/uL (NEGATIVE); COLOR,URINE DARK YELLOW (YELLOW); KETONES,URINE TRACE mg/dL (NEGATIVE); LEUKOCYTE ESTERASE ,URINE NEGATIVE (NEGATIVE); NITRITE, URINE NEGATIVE (NEGATIVE); PROTEIN,URINE 1+ mg/dl (NEGATIVE); UGLUCOSE NEGATIVE (NEGATIVE)
[2024-08-18 00:41] LABS: CALCIUM, SERUM 8.4 mg/dL (8.5-10.1); CARBON DIOXIDE 30 mmol/L (21-32); CHLORIDE 105 mmol/L (98-107); CREATININE 0.8 mg/dL (0.6-1.3); GLUCOSE 140 mg/dL (74-106); POTASSIUM 4.1 mmol/L (3.5-5.1); SODIUM SERUM 138 mmol/L (136-145); UREA NITROGEN, BLOOD 17 mg/dL (7-18)
[2024-08-18 00:55] LABS: ALANINE AMINOTRANSFERASE 51 U/L (12-78); ALBUMIN 1.6 g/dL (3.4-5.0); ALKALINE PHOSPHATASE 274 U/L (46-116); ASPARTATE AMINOTRANSFERASE 62 U/L (15-37); BILIRUBIN,TOTAL 2.4 mg/dL (0.2-1.0); LIPASE 10 U/L (16-77); NT-PRO BNP 610 pg/mL (0-125); TOTAL PROTEIN, SERUM 6.6 g/dL (6.4-8.2)
[2024-08-18 01:15] LABS: ADD URINE CULTURE NO; BACTERIA,URINE Few /HPF (None Seen); SQUAMOUS EPITHELIAL CELL,UR Few /HPF (None Seen); WBC,URINE 0-2 /HPF (0-3)
[2024-08-18] MEDS: PIPERACILLIN /TAZOBACTAM 3.375 G in IV D5W 50 ML IV ONE (01:27)
[2024-08-18] MEDS ORDERED: PIPERACI/TAZO 3.375GM/D5W 50ML PB IV ONE (01:27)
[2024-08-18 02:12] LABS: ABG OXYGEN SATURATION 83.2 % (94.0-98.0); ABG PCO2 39.1 mmHg (35.0-48.0); ABG PH 7.414 (7.350-7.450); ABG PO2 52.4 mmHg (83.0-108.0); ABG TOTAL HEMOGLOBIN 11.6 G/dL (13.5-17.5); COHb 0.3 % (0.5-1.5); MetHb 0.5 % (0.0-1.5); O2Hb 82.5 % (94.0-97.0); SITE, ABG LEFT RADIAL
[2024-08-18 02:21] LABS: INR 1.53 (0.91-1.10); PARTIAL THROMBOPLASTIN TIME 40.7 SEC (24.3-34.3); PROTHROMBIN TIME 15.8 SECS (9.2-11.1)
[2024-08-18 02:27] LABS: CALCIUM, SERUM 8.5 mg/dL (8.5-10.1); CREATININE 0.9 mg/dL (0.6-1.3); POTASSIUM 4.2 mmol/L (3.5-5.1)
[2024-08-18] MEDS ORDERED: VANCOMYCIN 500 MG VIAL ONE (02:32)
[2024-08-18] MEDS ORDERED: VANCOMYCIN 1 GM /D5W 250 ML PB IV ONE (02:32)
[2024-08-18 02:34] LABS: ALBUMIN 1.5 g/dL (3.4-5.0); BILIRUBIN,DIRECT 0.7 mg/dL (0.0-0.2); BILIRUBIN,TOTAL 2.4 mg/dL (0.2-1.0); TOTAL PROTEIN, SERUM 6.5 g/dL (6.4-8.2)
[2024-08-18] MEDS: VANCOMYCIN HCL 1.25 GM in IV D5W 260 ML IV ONE (02:36)
[2024-08-18 02:45] LABS: LACTIC ACID 3.6 mmol/L (0.4-2.0)
[2024-08-18] MEDS ORDERED: ONDANSETRON HCL/PF 4 MG/2 ML VIAL IVP PRN (03:30)
[2024-08-18] MEDS ORDERED: Z GUARD REMEDY 4 OZ OINT TP PRN (03:30)
[2024-08-18] MEDS ORDERED: MAGNESIUM HYDROXIDE 30 ML UDC PO PRN (03:30)
[2024-08-18] MEDS ORDERED: MAG HYDROX/AL HYDROX/SIMETH 30 ML UDC PO PRN (03:30)
[2024-08-18] MEDS ORDERED: ACETAMINOPHEN 325 MG TABLET PO PRN (03:30)
[2024-08-18] MEDS ORDERED: ZOLPIDEM TARTRATE 5 MG TABLET PO PRN (03:30)
[2024-08-18] MEDS: IV NS 0.9% 1,000 ML IV PRN (06:52)
[2024-08-18] MEDS: ZOSYN IVPB 3.375 G in IV D5W 50ml IV SCH (07:25)
[2024-08-18] MEDS ORDERED: PIPERACILLIN /TAZOBACTAM 3.375 G in IV D5W 100 ML IV SCH (08:00)
[2024-08-18] MEDS ORDERED: ZINC220C6 GT (09:22)
[2024-08-18] MEDS ORDERED: RIFA550T GT (09:22)
[2024-08-18] MEDS ORDERED: FOLI0.8T3 GT (09:22)
[2024-08-18] MEDS ORDERED: GUAI5LIQ10 PO (09:22)
[2024-08-18] MEDS ORDERED: CLOT15CR5 TP (09:22)
[2024-08-18] MEDS ORDERED: TRIA80CR12 TP (09:22)
[2024-08-18] MEDS ORDERED: PANT40SU2 GT (09:22)
[2024-08-18] MEDS ORDERED: ACID1TAB15 PO (09:22)
[2024-08-18] MEDS: PANTOPRAZOLE 40 MG TABLET.DR PO SCH (11:02)
[2024-08-18] MEDS: IV NS 0.9% 250 ML IV PRN (11:04)
[2024-08-18] MEDS: ENOXAPARIN SODIUM 40 MG/0.4 ML DISP.SYRIN SQ SCH (11:04)
[2024-08-18] MEDS: THERAHONEY GEL 1.5 OZ TUBE TP SCH (12:00)
[2024-08-18] MEDS: PIPERACILLIN /TAZOBACTAM 3.375 G in IV D5W 100 ML IV SCH (14:20)
[2024-08-18] MEDS: GLUCERNA 1.2 1,000 ML BOTTLE NG PRN (21:26)
[2024-08-19 00:51] VITALS: BP 123/73; TEMP 98.1; O2SAT 100
[2024-08-19 04:13] VITALS: BP 121/70; TEMP 98.4; O2SAT 100
[2024-08-19 06:52] LABS: CALCIUM, SERUM 8.1 mg/dL (8.5-10.1); CREATININE 0.7 mg/dL (0.6-1.3); PHOSPHORUS 2.6 mg/dL (2.5-4.9); POTASSIUM 3.8 mmol/L (3.5-5.1)
[2024-08-19 06:59] LABS: THYROID STIMULATING HORMONE 9.63 uIU/mL (0.358-3.74)
[2024-08-19 07:48] LABS: LACTIC ACID 2.7 mmol/L (0.4-2.0)
[2024-08-19 08:11] LABS: BASOPHILS % (AUTO) 0.1 % (0.0-2.0); EOSINOPHILS # (AUTO) 3.8 K/uL (0.0-0.7); HEMATOCRIT 26 % (39-51); HEMOGLOBIN 8.9 g/dL (13.5-17.5); LYMPHOCYTES # (AUTO) 0.9 K/uL (0.8-4.8); LYMPHOCYTES % (AUTO) 6.3 % (20.0-44.0); MEAN CORPUSCULAR HEMOGLOBIN 36 PG (26.0-33.0); MEAN CORPUSCULAR HGB CONC 34 g/dl (31.0-36.0); MEAN CORPUSCULAR VOLUME 105 fL (80-96); MONOCYTES % (AUTO) 7.1 % (2.0-12.0); NEUTROPHILS # (AUTO) 8.2 K/uL (1.8-8.9); NEUTROPHILS % (AUTO) 59.3 % (43.0-81.0); PLATELET COUNT (AUTO) 127 K/uL (150-450); RED BLOOD CELL COUNT(AUTO) 2.49 MIL/uL (4.5-6.0); RED CELL DISTRIBUTION WIDTH 21.2 % (11.5-15.0); WHITE BLOOD COUNT (AUTO) 13.8 K/uL (4.3-11.0)
[2024-08-19 08:25] VITALS: BP 115/72; TEMP 98; O2SAT 99
[2024-08-19 08:53] LABS: EOSINOPHILS % (AUTO) 27.2 % (0.0-6.0)
[2024-08-19 15:10] LABS: ANISOCYTOSIS 1+; EOSINOPHILS % (MANUAL) 25 % (0-4); LYMPHOCYTES % (MANUAL) 3 % (16-48); MONOCYTES % (MANUAL) 7 % (0-11.0); NEUTROPHILS % (MANUAL) 65 (42-76); PLATELET ESTIMATE DECREASED
[2024-08-19 16:10] VITALS: BP 122/78; TEMP 97.9; O2SAT 98
[2024-08-19] MEDS: LACTULOSE 10 G/15 ML UDC (PYXIS) PO SCH (17:25)
[2024-08-19 20:00] VITALS: BP 112/72; TEMP 96.8; O2SAT 98
[2024-08-20 05:00] VITALS: BP 112/80; TEMP 97.7; O2SAT 99
[2024-08-20] MEDS: GLUCERNA 1.2 1,000 ML BOTTLE GT PRN (07:23)
[2024-08-20 07:27] LABS: CALCIUM, SERUM 8.1 mg/dL (8.5-10.1); CREATININE 0.9 mg/dL (0.6-1.3); POTASSIUM 3.6 mmol/L (3.5-5.1)
[2024-08-20 09:58] LABS: BASOPHILS % (AUTO) 0.2 % (0.0-2.0); EOSINOPHILS # (AUTO) 5.3 K/uL (0.0-0.7); HEMATOCRIT 31 % (39-51); HEMOGLOBIN 10.3 g/dL (13.5-17.5); LYMPHOCYTES # (AUTO) 0.8 K/uL (0.8-4.8); LYMPHOCYTES % (AUTO) 6.3 % (20.0-44.0); MEAN CORPUSCULAR HEMOGLOBIN 35 PG (26.0-33.0); MEAN CORPUSCULAR HGB CONC 33 g/dl (31.0-36.0); MEAN CORPUSCULAR VOLUME 106 fL (80-96); MONOCYTES # (AUTO) 0.8 K/uL (0.1-1.30); MONOCYTES % (AUTO) 5.9 % (2.0-12.0); NEUTROPHILS # (AUTO) 6.3 K/uL (1.8-8.9); NEUTROPHILS % (AUTO) 47.7 % (43.0-81.0); PLATELET COUNT (AUTO) 119 K/uL (150-450); RED BLOOD CELL COUNT(AUTO) 2.93 MIL/uL (4.5-6.0); RED CELL DISTRIBUTION WIDTH 21.6 % (11.5-15.0); WHITE BLOOD COUNT (AUTO) 13.3 K/uL (4.3-11.0)
[2024-08-20 09:59] LABS: EOSINOPHILS % (AUTO) 39.9 % (0.0-6.0)
[2024-08-20] MEDS: IV 1/2NS 1000 ML 1,000 ML IV SCH (10:39)
[2024-08-20] MEDS: VANCOMYCIN 1 GM in IV D5W 250ml IV SCH (12:07)
[2024-08-20 13:00] VITALS: O2SAT 99
[2024-08-20 13:58] LABS: EOSINOPHILS % (MANUAL) 31 % (0-4); LYMPHOCYTES % (MANUAL) 3 % (16-48); MONOCYTES % (MANUAL) 2 % (0-11.0); NEUTROPHILS % (MANUAL) 64 (42-76)
[2024-08-20 13:59] LABS: PLATELET ESTIMATE DECREASED
[2024-08-20 14:00] LABS: ANISOCYTOSIS 1+
[2024-08-20 16:00] VITALS: BP 117/68; TEMP 97.2; O2SAT 97
[2024-08-21] VITALS: BP 132/62; TEMP 97.5
[2024-08-21 05:00] VITALS: BP 122/61; TEMP 98.3
[2024-08-21 06:15] LABS: MEAN CORPUSCULAR VOLUME 105 fL (80-96); MONOCYTES # (AUTO) 0.8 K/uL (0.1-1.30)
[2024-08-21 06:16] LABS: CALCIUM, SERUM 8.1 mg/dL (8.5-10.1); CREATININE 0.8 mg/dL (0.6-1.3); POTASSIUM 3.8 mmol/L (3.5-5.1)
[2024-08-21 06:22] LABS: BASOPHILS % (AUTO) 0.1 % (0.0-2.0); EOSINOPHILS # (AUTO) 6.4 K/uL (0.0-0.7); HEMATOCRIT 29 % (39-51); LYMPHOCYTES # (AUTO) 0.9 K/uL (0.8-4.8); LYMPHOCYTES % (AUTO) 6.8 % (20.0-44.0); MEAN CORPUSCULAR HEMOGLOBIN 36 PG (26.0-33.0); MEAN CORPUSCULAR HGB CONC 34 g/dl (31.0-36.0); MONOCYTES % (AUTO) 6.2 % (2.0-12.0); NEUTROPHILS % (AUTO) 38.2 % (43.0-81.0); PLATELET COUNT (AUTO) 77 K/uL (150-450); RED BLOOD CELL COUNT(AUTO) 2.78 MIL/uL (4.5-6.0); RED CELL DISTRIBUTION WIDTH 21.4 % (11.5-15.0)
[2024-08-21 06:23] LABS: EOSINOPHILS % (AUTO) 48.7 % (0.0-6.0)
[2024-08-21 11:58] LABS: EOSINOPHILS % (MANUAL) 54 % (0-4); LYMPHOCYTES % (MANUAL) 5 % (16-48); MONOCYTES % (MANUAL) 1 % (0-11.0); NEUTROPHILS % (MANUAL) 40 (42-76)
[2024-08-21 12:13] LABS: ANISOCYTOSIS 1+; PLATELET ESTIMATE DECREASED
[2024-08-21] MEDS: LACTULOSE 10 G/15 ML UDC (PYXIS) PO SCH (12:57)
[2024-08-21 13:25] VITALS: BP 132/62; TEMP 97.5; O2SAT 99
[2024-08-21] MEDS ORDERED: CEFTRIAXONE 1GM BAG (ER ONLY) 1 GM/50 ML PIGGYBACK IV SCH (13:30)
[2024-08-21] MEDS ORDERED: IVERMECTIN 3 MG TABLET GT SCH (13:30)
[2024-08-21] MEDS: PERMETHRIN 5% CRM 60 GM TUBE TP ONE (14:30)
[2024-08-21] MEDS: CEFTRIAXONE 2 G in IV D5W 100 ML IV SCH (14:30)
[2024-08-21] MEDS: MUPIROCIN OINT 2% 22 GM TUBE NS SCH (14:30)
[2024-08-21] MEDS: DOXYCYCLINE HYCLATE (100 MG) 100 MG TABLET PO SCH (14:32)
[2024-08-21 20:00] VITALS: BP 145/87; TEMP 97.5; O2SAT 100
[2024-08-22 04:00] VITALS: BP 141/80; TEMP 97.7; O2SAT 100
[2024-08-22] MEDS: IV 1/2NS 1000 ML 1,000 ML IV PRN (06:38)
[2024-08-22 08:00] VITALS: BP 111/66; TEMP 97.9; O2SAT 100
[2024-08-22 08:29] LABS: BASOPHILS % (AUTO) 0.1 % (0.0-2.0); EOSINOPHILS # (AUTO) 6.4 K/uL (0.0-0.7); HEMATOCRIT 29 % (39-51); HEMOGLOBIN 9.9 g/dL (13.5-17.5); MEAN CORPUSCULAR HEMOGLOBIN 36 PG (26.0-33.0); MEAN CORPUSCULAR HGB CONC 34 g/dl (31.0-36.0); MEAN CORPUSCULAR VOLUME 106 fL (80-96); MONOCYTES % (AUTO) 6.5 % (2.0-12.0); NEUTROPHILS # (AUTO) 6.4 K/uL (1.8-8.9); NEUTROPHILS % (AUTO) 43.2 % (43.0-81.0); PLATELET COUNT (AUTO) 67 K/uL (150-450); RED BLOOD CELL COUNT(AUTO) 2.73 MIL/uL (4.5-6.0); RED CELL DISTRIBUTION WIDTH 21.2 % (11.5-15.0); WHITE BLOOD COUNT (AUTO) 14.8 K/uL (4.3-11.0)
[2024-08-22 08:30] LABS: EOSINOPHILS % (AUTO) 43.2 % (0.0-6.0)
[2024-08-22 09:10] LABS: CALCIUM, SERUM 8.1 mg/dL (8.5-10.1); CREATININE 0.7 mg/dL (0.6-1.3); POTASSIUM 3.9 mmol/L (3.5-5.1)
[2024-08-22 13:04] LABS: LYMPHOCYTES % (MANUAL) 4 % (16-48); NEUTROPHILS % (MANUAL) 65 (42-76)
[2024-08-22 13:05] LABS: ANISOCYTOSIS 1+; EOSINOPHILS % (MANUAL) 29 % (0-4); MONOCYTES % (MANUAL) 2 % (0-11.0); PLATELET ESTIMATE DECREASED
[2024-08-22 13:23] LABS: BILIRUBIN,DIRECT 0.6 mg/dL (0.0-0.2); BILIRUBIN,TOTAL 1.2 mg/dL (0.2-1.0); TOTAL PROTEIN, SERUM 5.4 g/dL (6.4-8.2)
[2024-08-22 13:47] LABS: ALBUMIN 1.2 g/dL (3.4-5.0)
[2024-08-22 13:51] LABS: HIV-1 p24 ANTIGEN NON REACTIVE (NONREACTIVE); HIV-1/2 ANTIBODY NON REACTIVE (NONREACTIVE)
[2024-08-22 16:00] VITALS: BP 96/58; TEMP 97.7; O2SAT 99
[2024-08-22 20:00] VITALS: BP 118/67; O2SAT 100
[2024-08-23 04:00] VITALS: BP 116/65; TEMP 98.1; O2SAT 98
[2024-08-23 07:50] LABS: CALCIUM, SERUM 8.5 mg/dL (8.5-10.1); CARBON DIOXIDE 26 mmol/L (21-32); CHLORIDE 114 mmol/L (98-107); CREATININE 0.7 mg/dL (0.6-1.3); GLUCOSE 124 mg/dL (74-106); POTASSIUM 4.5 mmol/L (3.5-5.1); SODIUM SERUM 148 mmol/L (136-145); UREA NITROGEN, BLOOD 17 mg/dL (7-18)
[2024-08-23 08:00] VITALS: BP 124/73; TEMP 97.8; O2SAT 97
[2024-08-23 09:05] LABS: OCCULT BLOOD STOOL NEGATIVE (NEGATIVE)
[2024-08-23] MEDS: LACTULOSE 10 G/15 ML UDC (PYXIS) GT SCH (10:57)
[2024-08-23 15:15] VITALS: O2SAT 99
[2024-08-23 16:00] VITALS: BP 124/74; TEMP 97.3; O2SAT 97
[2024-08-23] MEDS: RIFAXIMIN 550 MG TABLET GT SCH (17:09)
[2024-08-23] MEDS: LACTOBACILLUS RHAMNOSUS GG 1 EACH CAP.SPRINK PO SCH (17:10)
[2024-08-23 20:00] VITALS: BP 121/70; TEMP 96.9
[2024-08-23] MEDS ORDERED: SENNOSIDES 8.6 MG TABLET GT SCH (22:00)
[2024-08-24] VITALS (9 sets, daily range): BP systolic 101–116; BP diastolic 60–84; TEMP 94.5–98.2; O2SAT 95–99
[2024-08-24] MEDS: ALBUTEROL FS 2.5 MG/0.5 ML VIAL.NEB NEB PRN (01:33)
[2024-08-24] MEDS: IPRATROPIUM NEB FS 0.5 MG/2.5 ML AMPUL.NEB NEB PRN (01:33)
[2024-08-24 08:08] LABS: HEMOGLOBIN 10.1 g/dL (13.5-17.5); LYMPHOCYTES # (AUTO) 0.9 K/uL (0.8-4.8); MONOCYTES # (AUTO) 1.3 K/uL (0.1-1.30)
[2024-08-24 08:15] LABS: BASOPHILS % (AUTO) 0.2 % (0.0-2.0); EOSINOPHILS # (AUTO) 7.6 K/uL (0.0-0.7); HEMATOCRIT 30 % (39-51); LYMPHOCYTES % (AUTO) 5.3 % (20.0-44.0); MEAN CORPUSCULAR HEMOGLOBIN 36 PG (26.0-33.0); MEAN CORPUSCULAR HGB CONC 34 g/dl (31.0-36.0); MEAN CORPUSCULAR VOLUME 107 fL (80-96); MONOCYTES % (AUTO) 7.4 % (2.0-12.0); NEUTROPHILS % (AUTO) 44.6 % (43.0-81.0); PLATELET COUNT (AUTO) 65 K/uL (150-450); RED BLOOD CELL COUNT(AUTO) 2.81 MIL/uL (4.5-6.0); RED CELL DISTRIBUTION WIDTH 22.1 % (11.5-15.0)
[2024-08-24 08:18] LABS: EOSINOPHILS % (AUTO) 42.5 % (0.0-6.0)
[2024-08-24 08:25] LABS: CALCIUM, SERUM 8.5 mg/dL (8.5-10.1); CREATININE 0.9 mg/dL (0.6-1.3); POTASSIUM 4.2 mmol/L (3.5-5.1)
[2024-08-24] MEDS: ZINC SULFATE 220 MG CAPSULE GT SCH (09:35)
[2024-08-24] MEDS: FOLIC ACID 1 MG TABLET GT SCH (09:35)
[2024-08-24 10:53] LABS: PLATELET ESTIMATE DECREASED
[2024-08-24 10:56] LABS: EOSINOPHILS % (MANUAL) 33 % (0-4); LYMPHOCYTES % (MANUAL) 4 % (16-48); MONOCYTES % (MANUAL) 4 % (0-11.0); NEUTROPHILS % (MANUAL) 59 (42-76)
[2024-08-24 10:58] LABS: ANISOCYTOSIS 1+
[2024-08-24] MEDS: VANCOMYCIN 750 MG in IV D5W 250 ML IV SCH (11:52)
[2024-08-25] VITALS (8 sets, daily range): BP systolic 101–111; BP diastolic 59–67; TEMP 94.5–97.5; O2SAT 96–100
[2024-08-25 13:21] LABS: BASOPHILS % (AUTO) 0.1 % (0.0-2.0); EOSINOPHILS # (AUTO) 9.3 K/uL (0.0-0.7); HEMATOCRIT 29 % (39-51); LYMPHOCYTES % (AUTO) 5.5 % (20.0-44.0); MEAN CORPUSCULAR HEMOGLOBIN 36 PG (26.0-33.0); MEAN CORPUSCULAR HGB CONC 34 g/dl (31.0-36.0); MEAN CORPUSCULAR VOLUME 106 fL (80-96); MONOCYTES # (AUTO) 1.2 K/uL (0.1-1.30); MONOCYTES % (AUTO) 6.5 % (2.0-12.0); NEUTROPHILS # (AUTO) 6.9 K/uL (1.8-8.9); NEUTROPHILS % (AUTO) 37.6 % (43.0-81.0); PLATELET COUNT (AUTO) 51 K/uL (150-450); RED BLOOD CELL COUNT(AUTO) 2.75 MIL/uL (4.5-6.0); RED CELL DISTRIBUTION WIDTH 21.6 % (11.5-15.0); WHITE BLOOD COUNT (AUTO) 18.4 K/uL (4.3-11.0)
[2024-08-25 13:22] LABS: EOSINOPHILS % (AUTO) 50.3 % (0.0-6.0)
[2024-08-25 13:49] LABS: ANISOCYTOSIS 1+; BAND % (MANUAL) 1 % (0.0-5.0); EOSINOPHILS % (MANUAL) 34 % (0-4); MONOCYTES % (MANUAL) 5 % (0-11.0); NEUTROPHILS % (MANUAL) 60 (42-76); PLATELET ESTIMATE DECREASED
[2024-08-26 04:00] VITALS: BP 101/70; TEMP 97.2; O2SAT 94
[2024-08-26 08:00] VITALS: BP 100/59; TEMP 97.5; O2SAT 100
[2024-08-26 08:54] LABS: HEMATOCRIT 33 % (39-51); HEMOGLOBIN 11.2 g/dL (13.5-17.5); LYMPHOCYTES # (AUTO) 0.9 K/uL (0.8-4.8); LYMPHOCYTES % (AUTO) 4.1 % (20.0-44.0); MEAN CORPUSCULAR HEMOGLOBIN 37 PG (26.0-33.0); MEAN CORPUSCULAR HGB CONC 34 g/dl (31.0-36.0); MEAN CORPUSCULAR VOLUME 108 fL (80-96); MONOCYTES # (AUTO) 1.5 K/uL (0.1-1.30); MONOCYTES % (AUTO) 6.7 % (2.0-12.0); NEUTROPHILS # (AUTO) 13.3 K/uL (1.8-8.9); NEUTROPHILS % (AUTO) 61.4 % (43.0-81.0); PLATELET COUNT (AUTO) 71 K/uL (150-450); RED BLOOD CELL COUNT(AUTO) 3.04 MIL/uL (4.5-6.0); RED CELL DISTRIBUTION WIDTH 22.7 % (11.5-15.0); WHITE BLOOD COUNT (AUTO) 21.7 K/uL (4.3-11.0)
[2024-08-26 09:00] LABS: MAGNESIUM 2.1 mg/dL (1.8-2.4); PHOSPHORUS 3.8 mg/dL (2.5-4.9)
[2024-08-26 09:39] LABS: EOSINOPHILS % (AUTO) 27.8 % (0.0-6.0)
[2024-08-26 09:45] LABS: CALCIUM, SERUM 8.7 mg/dL (8.5-10.1); CREATININE 0.9 mg/dL (0.6-1.3); POTASSIUM 4.4 mmol/L (3.5-5.1)
[2024-08-26] MEDS: MEROPENEM 1 G in IV NS 0.9% 100 ML IV SCH (09:55)
[2024-08-26 12:16] LABS: EOSINOPHILS % (MANUAL) 19 % (0-4); LYMPHOCYTES % (MANUAL) 2 % (16-48); MONOCYTES % (MANUAL) 2 % (0-11.0); NEUTROPHILS % (MANUAL) 77 (42-76)
[2024-08-26 12:17] LABS: ANISOCYTOSIS 1+; PLATELET ESTIMATE DECREASED
[2024-08-26 16:00] VITALS: BP 108/64; TEMP 97.5; O2SAT 95
[2024-08-26 20:00] VITALS: BP 107/62; TEMP 93; O2SAT 100
[2024-08-27 04:00] VITALS: BP 54/28; TEMP 97.3; O2SAT 80
== END 2024-08-27 06:00 | DRG 871 ==
LOC: ER 23:18 → TRANSITION 08-18 04:57 → TELE-TD 08-18 07:32 → TELE1 08-18 08:05 → MEDSG1 08-19 09:52
PROVIDERS: ADMIT Student in an Organized Health Care Education/Training Program
PROC: 05H933Z Insertion of Infusion Device into Right Brachial Vein, Percutaneous Approach (ICD-10-PCS; principal; 2024-08-25)
DX: A41.9 Sepsis, unspecified organism (principal); E43 Unspecified severe protein-calorie malnutrition; J96.01 Acute respiratory failure with hypoxia; J69.0 Pneumonitis due to inhalation of food and vomit; J15.69 Pneumonia due to other Gram-negative bacteria; L89.623 Pressure ulcer of left heel, stage 3; G93.41 Metabolic encephalopathy; R18.8 Other ascites; J98.11 Atelectasis; J91.8 Pleural effusion in other conditions classified elsewhere; C22.0 Liver cell carcinoma; K76.6 Portal hypertension; I85.10 Secondary esophageal varices without bleeding; E87.20 Acidosis, unspecified; Z66 Do not resuscitate; I10 Essential (primary) hypertension; N40.0 Benign prostatic hyperplasia without lower urinary tract symptoms; Z22.322 Carrier or suspected carrier of Methicillin resistant Staphylococcus aureus; Z78.1 Physical restraint status; M24.572 Contracture, left ankle; M24.571 Contracture, right ankle; E11.51 Type 2 diabetes mellitus with diabetic peripheral angiopathy without gangrene; I70.202 Unspecified atherosclerosis of native arteries of extremities, left leg; K74.60 Unspecified cirrhosis of liver; B86 Scabies; R65.20 Severe sepsis without septic shock; R13.10 Dysphagia, unspecified; Z74.01 Bed confinement status; F01.50 Vascular dementia, unspecified severity, without behavioral disturbance, psychotic disturbance, mood disturbance, and anxiety; K40.20 Bilateral inguinal hernia, without obstruction or gangrene, not specified as recurrent; Z86.73 Personal history of transient ischemic attack (TIA), and cerebral infarction without residual deficits; Z86.711 Personal history of pulmonary embolism; D50.9 Iron deficiency anemia, unspecified; E88.09 Other disorders of plasma-protein metabolism, not elsewhere classified; S30.0XXA Contusion of lower back and pelvis, initial encounter; X58.XXXA Exposure to other specified factors, initial encounter; Y92.129 Unspecified place in nursing home as the place of occurrence of the external cause
CPT/HCPCS: 31720; 36415; 36600; 71045-TC; 80048-TC; 80053-TC; 80076-TC; 80202-TC; 81001; 82140-TC; 82272-TC; 82803-TC; 83605-TC; 83690-TC; 83735-TC; 83880; 84100-TC; 84439-TC; 84443-TC; 84484-TC; 85025-TC; 85730-TC; 86803; 87040-TC; 87081-TC; 87340; 87806; 94760-TC; 94799-TC; A4223; A4629; A6253; G0378; J0696; J1650; J2185; J2405; J2543; J3370; J3371; J3490; J7030; J7050; J7060